=== PATIENT | male | born 1975 | race Caucasian/White ===

== ENCOUNTER 2018-08-20 12:57 | Emergency (ER) | payer OTHER, MEDICAID, SELFPAY ==
--- NOTE | 2018-08-20 13:05 | ED.URI ---
HPI - URI/Sore Throat <Marii Pickard PA-C - Last Filed: 08/20/18 21:48> General Chief Complaint: Upper Respiratory Symptoms Stated Complaint: CHEST COLD Time Seen by Provider: 08/20/18 13:01 Source: patient Mode of arrival: ambulatory Limitations: no limitations History of Present Illness HPI Narrative: This 43-year-old male comes to ED secondary to upper respiratory symptoms. He states that symptoms started almost 2 weeks ago with a ?dizzy? sensation like his ears were clogged or congested. He states that resolved, but then developed persistent cough, postnasal drip, and runny nose. He states that the cough has been fairly constant, wet with clear to frothy or corey sputum. He states that his throat feels somewhat scratchy and his left side of his neck feels somewhat sore and tender. He thinks these are due to coughing hard, does not feel like he has sore throat otherwise per se. He states that he does feel somewhat short of breath and has had some wheeze, worse when he wakes up in the morning and better in the afternoon. He thinks maybe his chest feels more congested than. He states he has also had some sweating at night and early in the morning, has not taken temperature is. He denies any chest pain, denies any new pain or swelling in his extremities. multiple community exposures but nothing specific. He did have a flu shot prior to onset of symptoms. He does have a history of reactive airways with bronchitis last year. Related Data Home Medications Medication Instructions Recorded Confirmed levothyroxine 175 mcg tablet 175 mcg PO DAILY 08/10/18 08/10/18 loratadine 10 mg capsule 10 mg PO DAILY 08/10/18 08/10/18 losartan 100 mg tablet 100 mg PO DAILY 08/10/18 08/10/18 metformin 1,000 mg tablet 1,000 mg PO BID 08/10/18 08/10/18 Previous Rx's Medication Instructions Recorded varenicline 0.5 mg (11)-1 mg (42) See Rx Instructions PO PER PKG DIR 08/10/18 tablets in a dose pack #53 each albuterol sulfate 2 inhalation INHALATION Q2-4H PRN 08/20/18 #8.5 gram codeine-guaifenesin 10 ml PO Q4-6H PRN #120 ml 08/20/18 Allergies Allergy/AdvReac Type Severity Reaction Status Date / Time rock Allergy Mild hives Verified 08/10/18 14:11 Review of Systems <Marii Pickard PA-C - Last Filed: 08/20/18 21:48> Review of Systems ROS Unobtainable: All systems reviewed & are unremarkable except as noted in HPI and below PFSH <Marii Pickard PA-C - Last Filed: 08/20/18 21:48> Medical History (Updated 08/20/18 @ 14:11 by Marii Pickard PA-C) Hypothyroidism (Chronic) Hypertension (Chronic) 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 HEAD: No sinus TTP. EYES: PERRL, EOMI. EARS: Normal auditory canals, TMS intact with normal light reflexes. ORAL CAVITY: Normal oropharynx. THROAT: PND noted NECK/THYROID: Neck supple, full range of motion, tender cervical lymphadenopathy. LUNGS: Clear to auscultation bilaterally, aside from coarse breath sounds, no cough on exam. HEART: RRR without murmur, nl S1, S2, no S3 or S4. Initial Vital Signs Initial Vital Signs: Vital Signs Temperature 97.8 F 08/20/18 13:06 Pulse Rate 95 H 08/20/18 13:06 Respiratory Rate 20 08/20/18 13:06 Blood Pressure 168/99 H 08/20/18 13:06 Pulse Oximetry 97 08/20/18 13:06 <Maite Alex MD - Last Filed: 08/30/18 07:38> Initial Vital Signs Initial Vital Signs: Vital Signs Temperature 97.8 F 08/20/18 13:06 Pulse Rate 95 H 08/20/18 13:06 Respiratory Rate 20 08/20/18 13:06 Blood Pressure 168/99 H 08/20/18 13:06 Pulse Oximetry 97 08/20/18 13:06 Course <Marii Pickard PA-C - Last Filed: 08/20/18 21:48> Orders Ordered: Discontinued Medications Albuterol (Ventolin) 2.5 mg INH NOW ONE Stop: 08/20/18 13:22 Last Admin: 08/20/18 13:35 Dose: 2.5 mg Vital Signs - 8 hr 08/20/18 14:13 Pulse Rate 93 H Respiratory Rate 16 Blood Pressure [Left Arm] 145/82 H Pulse Oximetry 97 <Maite Alex MD - Last Filed: 08/30/18 07:38> Orders Ordered: Discontinued Medications Albuterol (Ventolin) 2.5 mg INH NOW ONE Stop: 08/20/18 13:22 Last Admin: 08/20/18 13:35 Dose: 2.5 mg Vital Signs - 8 hr 08/20/18 14:13 Pulse Rate 93 H Respiratory Rate 16 Blood Pressure [Left Arm] 145/82 H Pulse Oximetry 97 MDM - URI/Sore Throat <Marii Pickard PA-C - Last Filed: 08/20/18 21:48> Imaging Data Chest x-ray: Radiologist's impression: [place] [address] XRay Report Signed Patient: Marquez Singleton [facility]#: [id number] : 1975Acct:[id number] Age/Sex: 43 / MDate of Service: 08/20/18 Loc: ED Accession Number: [id number] Procedure: XR chest 2V Ordering Provider: Marii Pickard P.A-C PROCEDURE: XR CHEST 2V INDICATIONS: cough, sweats, smoker TECHNIQUE: 2 views of the chest were acquired. COMPARISON: None. FINDINGS: Surgical changes and devices: None. Lungs and pleura: Lungs are clear. No pleural effusions or pneumothorax. Mild elevation of the right diaphragm is noted. Mediastinum: Mediastinal contours are normal. Heart size is normal. Bones and chest wall: No suspicious bony abnormalities. Soft tissues appear unremarkable. IMPRESSION: No acute cardiopulmonary process is suspected. Dictated by: Jose Martinez M.D. on 08/20/2018 at 12:38 Approved by: Jose Martinez M.D. on 08/20/2018 at 12:39 Discharge Plan Departure Patient Disposition: Home Clinical Impression: Bronchitis, Mild intermittent reactive airway disease Discharge Date/Time: 08/20/18 14:30 Interventions: ED Discharge Assessment Last Done: 08/20/18 14:29 Instructions: DI for Acute Bronchitis, DI for Reactive Airway Disease-Adult Activity Restrictions/Additional Instructions: I think that you have a head and chest cold (bronchitis) that is worsened by your reactive airways that you have had before. Please use your inhaler at least morning and evening, and you can use up to every couple of hours as needed in between for cough or tight chest. Use the spacer that we gave you. During the day, please try [id number] Mucinex to help with chest congestion, and also pick and shovel worker some Zyrtec (cetirizine, 10 mg) and try this instead of your Claritin once daily to help with the drainage. in the evening, you can use the codeine cough syrup as needed to help with cough and sleep, but remember this can make you sleepy and not to drive. Please follow-up with your PCP in a few days for recheck to make sure you are getting better as you may need further treatment if not improving. Prescriptions: New codeine-guaifenesin 10-100 mg/5 mL liquid 10 ml PO Q4-6H PRN (Reason: cough) Qty: 120 RF: 0 albuterol sulfate 90 mcg/actuation HFA aerosol inhaler 2 inhalation INHALATION Q2-4H PRN (Reason: cough, wheeze) Qty: 8.5 RF: 0 No Action levothyroxine [Synthroid] 175 mcg tablet 175 mcg PO DAILY RF: 0 metformin 1,000 mg tablet 1,000 mg PO BID RF: 0 losartan 100 mg tablet 100 mg PO DAILY RF: 0 loratadine 10 mg capsule 10 mg PO DAILY RF: 0 Chantix Starting Month Box 0.5 mg (11)- 1 mg (42) tablets,dose pack See Rx Instructions PO PER PKG DIR Qty: 53 RF: 0 Referrals: Veena Miles ARNP [Advanced Support Team Member] -
[2018-08-20 13:06] VITALS: BP 168/99; PULSE 95; RESP 20; TEMP 36.6; O2SAT 97
--- NOTE | 2018-08-20 13:21 | DI.RAD.S_ITS ---
PROCEDURE: XR CHEST 2V INDICATIONS: cough, sweats, smoker TECHNIQUE: 2 views of the chest were acquired. COMPARISON: None. FINDINGS: Surgical changes and devices: None. Lungs and pleura: Lungs are clear. No pleural effusions or pneumothorax. Mild elevation of the right diaphragm is noted. Mediastinum: Mediastinal contours are normal. Heart size is normal. Bones and chest wall: No suspicious bony abnormalities. Soft tissues appear unremarkable. IMPRESSION: No acute cardiopulmonary process is suspected. Dictated by: Jose Martinez M.D. on 08/20/2018 at 12:38 Approved by: Jose Martinez M.D. on 08/20/2018 at 12:39
[2018-08-20] MEDS: ALBUTEROL 2.5 MG/3 ML NEB (ADULT) INH (13:35)
[2018-08-20 13:47] VITALS: PULSE 88; RESP 16
[2018-08-20 14:13] VITALS: BP 145/82; PULSE 93; RESP 16; O2SAT 97
== END 2018-08-20 14:30 | disposition home or self-care (01) ==
PROVIDERS: Emergency Provider Internal Medicine
DX: J40 Bronchitis, not specified as acute or chronic (principal); J45.20 Mild intermittent asthma, uncomplicated
CPT/HCPCS: 71046; 94640; 99282; 99283; J7613

== ENCOUNTER → 2018-09-07 12:23 | Outpatient (CLI) | payer OTHER, MEDICAID, SELFPAY ==
[2018-09-07 13:20] LABS: Add Manual Diff / Slide Review NO; Basophils Absolute Auto 100 /uL (0-100); Basophils Percent Auto 0.9 % (0-2); Eosinophils Absolute Auto 200 /uL (0-450); Eosinophils Percent Auto 1.8 % (2-4); Hematocrit 47.6 % (41-53); Hemoglobin 16.7 g/dL (13.5-17.5); Lymphocytes Absolute Auto 2700 /uL (1100-4500); Lymphocytes Percent Auto 31.9 % (25-40); Mean Corpuscular Volume 88.6 fL (80-100); Monocytes Absolute Auto 500 /uL (0-900); Monocytes Percent Auto 6.1 % (3-14); Neutrophils Absolute Auto 5100 /uL (1500-7000); Neutrophils Percent Auto 59.3 % (50-75); Platelet Count 222 X10^3/uL (150-400); Red Blood Cell Count 5.37 X10^6/uL (4.5-5.9); Red Cell Distribution Width 13.6 % (11.6-14.8); White Blood Cell Count 8.6 X10^3/uL (4.5-11.0)
[2018-09-07 13:48] LABS: Alanine Aminotransferase 55 IU/L (21-72); Albumin 4.6 g/dL (3.5-5.0); Albumin Globulin Ratio 1.5 (1.0-2.8); Alkaline Phosphatase 85 U/L (38-126); Aspartate Aminotransferase 28 IU/L (17-59); BUN Creatinine Ratio 13.8 (6-22); Bilirubin Total 0.6 mg/dL (0.2-1.3); Blood Urea Nitrogen 11 mg/dL (9-20); Carbon Dioxide 26 mmol/L (22-32); Chloride 102 mmol/L (98-107); Cholesterol 177 mg/dL (140-199); Estimated Glomerular Filt Rate > 60.0 mL/min (>60); Glucose 215 mg/dL (70-100); HDL Cholesterol 38 mg/dL (40-60); HEMOLYSIS < 15 (0-50); LDL Cholesterol Calculated 113 mg/dL (<100); Potassium 4.1 mmol/L (3.4-5.1); Sodium 140 mmol/L (137-145); Total Protein 7.6 g/dL (6.3-8.2); Triglycerides 131 mg/dL (35-150)
[2018-09-07 14:34] LABS: Thyroid Stimulating Hormone 1.42 uIU/mL (0.47-4.68)
== END ==
PROVIDERS: Visit Provider Nurse Practitioner
DX: E03.9 Hypothyroidism, unspecified (principal); E11.9 Type 2 diabetes mellitus without complications; I10 Essential (primary) hypertension
CPT/HCPCS: 80053; 80061; 83036; 84443; 85025

== ENCOUNTER 2018-10-13 10:47 | Emergency (ER) | payer OTHER, MEDICAID, SELFPAY ==
[2018-10-13 10:54] VITALS: BP 171/112; PULSE 73; RESP 16; TEMP 36.8; O2SAT 100; BMI 31.2
[2018-10-13] MEDS: ONDANSETRON 4 MG/2 ML INJ IV (11:47)
[2018-10-13] MEDS: SODIUM CHLORIDE 0.9% 1,000 ML 1000 ML IV (11:47)
[2018-10-13 12:00] VITALS: BP 165/94; PULSE 79; RESP 16; O2SAT 97
--- NOTE | 2018-10-13 13:09 | ED_ITS ---
HPI - Nausea/Vomiting/Diarrhea General Chief complaint: Nausea/Vomiting/Diarrhea Stated complaint: Dizzy, Headache, Vomiting Time Seen by Provider: 10/13/18 11:20 Source: patient Mode of arrival: ambulatory Limitations: no limitations History of Present Illness HPI Narrative: Patient comes to emergency department complaining of nausea and vomiting on and off for the last week. He states that he has been under lot of stress over the last couple of weeks, as his mother during that time, and his boss has been giving a very hard time about being gone for that and now being ill. Patient states he had diarrhea initially but has not had any currently. He states that he has intermittently been able to eat and drink, and was able to hold down fluids this morning, but in between is vomiting everything . Patient is a diabetic, and states that his blood sugars, both fasting and otherwise, are usually in the 100's. Patient denies any fevers or chills. No dysuria. No blood in his vomit or diarrhea. No chest pain or abdominal pain. No other complaints at this time. No sick contacts. 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 Related Data Home Medications Medication Instructions Recorded Confirmed levothyroxine 175 mcg tablet 175 mcg PO DAILY 08/10/18 08/10/18 loratadine 10 mg capsule 10 mg PO DAILY 08/10/18 08/10/18 metformin 2,000 mg PO BEDTIME 10/13/18 10/13/18 Previous Rx's Medication Instructions Recorded varenicline 0.5 mg (11)-1 mg (42) See Rx Instructions PO PER PKG DIR 08/10/18 tablets in a dose pack #53 each albuterol sulfate 2 inhalation INHALATION Q2-4H PRN 08/20/18 #8.5 gram codeine-guaifenesin 10 ml PO Q4-6H PRN #120 ml 08/20/18 glyburide 5 mg tablet 5 mg PO DAILY #90 tab 09/10/18 losartan 100 mg tablet 100 mg PO DAILY #90 tab 09/10/18 losartan 25 mg tablet 25 mg PO DAILY #90 tab 09/14/18 ondansetron 4 mg PO Q6-8H PRN #10 tab 10/13/18 Allergies Allergy/AdvReac Type Severity Reaction Status Date / Time rock Allergy Mild hives Verified 10/13/18 10:54 Review of Systems Constitutional Denies chills, Denies fever(s), Denies lethargy and Denies weakness Eyes Denies change in vision, Denies eye discharge, Denies irritation and Denies loss of vision ENT Ears, Nose, Mouth, and Throat: Denies change in voice, Denies neck pain and Denies sore throat Cardiovascular Denies chest pain, Denies irregular heart rhythm, Denies lightheadedness, Denies palpitations, Denies dyspnea, Denies dyspnea on exertion and Denies orthopnea Respiratory Denies cough, Denies dyspnea, Denies dyspnea on exertion and Denies wheezing Gastrointestinal Gastrointestinal: Denies abdominal pain, Denies change in bowel habits, Denies diarrhea, Reports nausea and Reports vomiting Genitourinary Denies hematuria, Denies flank pain, Denies urinary incontinence and Denies urinary urgency Musculoskeletal Denies neck pain Integumentary/Breasts Denies pruritus, Denies erythema, Denies rash and Denies wounds Neurologic Denies confusion, Denies loss of vision and Denies weakness Psychiatric Denies anxiety, Denies confusion, Denies depression, Denies homicidal ideation and Denies suicidal ideation Endocrine Denies palpitations Hematologic/Lymphatic Denies easy bruising Allergic/Immunologic Denies wheezing [facility] Medical History Hypothyroidism (Chronic ~2010) Hypertension (Chronic ~2006) Non-insulin dependent type 2 diabetes mellitus (Chronic ~2013) Dermatitis (Chronic ~2011) Headache (Chronic ~1984) Hearing loss (Chronic) SHIRLEY (obstructive sleep apnea) (Chronic ~2006) Seasonal allergies (Chronic) Wrist pain (Chronic ~2011) Surgical History Status post hernia repair (Resolved) Social History Smoking Status: Current every day smoker Social History Smoking Status: Current every day smoker Exam Initial Vital Signs Initial Vital Signs: Vital Signs Temperature 98.3 F 10/13/18 10:54 Pulse Rate 73 10/13/18 10:54 Respiratory Rate 16 10/13/18 10:54 Blood Pressure 171/112 H 10/13/18 10:54 Pulse Oximetry 100 10/13/18 10:54 Const General: cooperative and well developed Nutritional Appearance: well nourished Orientation: alert, awake, oriented x3 and not confused [facility] Head: normocephalic and atraumatic Ears: external ears normal and TM's normal bilaterally Nose: external nose normal and No nasal discharge Face and sinus: sinuses nontender, face symmetric, no sinus tenderness and No dry mucous membranes Mouth: oral mucosae normal and moist mucous membranes Teeth and gingiva: dentition normal Throat: tonsils normal and uvula midline Eyes General: appearance normal, both eyes and all related structures Eyelids: eyelids normal Conjunctivae: conjunctivae normal Sclera: sclerae normal Pupils: PERRL EOM: EOM intact bilaterally Neck Neck: normal visual inspection, trachea midline, No lymphadenopathy, No midline deformity and No JVD Lymphatic: No lymphedema Chest Chest: normal inspection of the chest Resp Effort & Inspection: normal respiratory effort, able to speak in complete sentences, no respiratory distress and no use of accessory muscles Auscultation: clear to auscultation bilaterally, no rales, no rhonchi and no wheezes Cardio Rate: regular rate Rhythm: regular rhythm Heart Sounds: no click, no gallops, no murmurs and no rubs Pulses: normal peripheral pulses GI Inspection: non-distended Palpation: soft, no hepatosplenomegaly, No guarding, No pulsatile mass and No tender Auscultation: normal bowel sounds Back/Spine/Pelvis Back: No CVA tenderness Cervical Spine: cervical ROM normal and No pain with cervical ROM Thoracic/Lumbar Spine: thoracic and lumbar spine normal to inspection Skin General: no rashes or lesions noted, No jaundice and No petechiae Neuro General: alert, oriented x3, gait normal and no focal motor deficits Speech: speech normal Extrem General: full ROM, no clubbing, cyanosis or edema, no pedal edema and no calf tenderness Psych Appearance: well kempt Mental Status: mental status grossly normal Attitude: cooperative Thought Content: normal and suicidality Judgment: judgment good Course Course Narrative: Patient was worked up with laboratory studies, and treated with IV fluids and Zofran. He appeared well overall, and I did not suspect a serious cause of illness. Patient was found be feeling better after treatment, though he was still little bit nauseated. His labs were unremarkable. Patient was deemed stable for discharge home. We have discussed home management of the symptoms, as well as the usual indications for return. Orders Ordered: Discontinued Medications Diphenhydramine HCl (Benadryl) 25 mg IV NOW ONE Stop: 10/13/18 14:19 Last Admin: 10/13/18 14:22 Dose: 25 mg Sodium Chloride (Normal Saline 0.9%) 1,000 mls @ 1,000 mls/hr IV BOLUS ONE Stop: 10/13/18 12:45 Last Infusion: 10/13/18 13:13 Dose: 0 mls/hr Admin: 10/13/18 11:47 Dose: 1,000 mls/hr Ondansetron HCl (Zofran) 4 mg IV NOW ONE Stop: 10/13/18 11:46 Last Admin: 10/13/18 11:47 Dose: 4 mg Prochlorperazine (Compazine) 10 mg IV NOW ONE Stop: 10/13/18 14:19 Last Admin: 10/13/18 14:22 Dose: 10 mg Vital Signs - 8 hr 10/13/18 10:54 10/13/18 12:00 Temperature 98.3 F Pulse Rate 73 79 Respiratory Rate 16 16 Blood Pressure 171/112 H Blood Pressure [Left Arm] 165/94 H Pulse Oximetry 100 97 MDM - Nausea/Vomiting/Diarrhea Medical Records Attestation: I reviewed the patient's medical records. Lab Data Attestation: I reviewed the patient's lab results. Result diagrams: 10/13/18 11:05 10/13/18 11:05 Lab Results 10/13/18 10/13/18 Range/Units 11:05 11:05 WBC 12.1 H (4.5-11.0) X10^3/uL RBC 5.44 (4.5-5.9) X10^6/uL Hgb 16.9 (13.5-17.5) g/dL Hct 47.3 (41-53) % MCV 86.9 (80-100) fL MCH 31.0 (26-34) PG MCHC 35.7 (30-36) % RDW 13.2 (11.6-14.8) % Plt Count 226 (150-400) X10^3/uL Neut % (Auto) 74.7 (50-75) % Lymph % (Auto) 18.8 L (25-40) % [place] % (Auto) 5.3 (3-14) % Eos % (Auto) 0.8 L (2-4) % Baso % (Auto) 0.4 (0-2) % Neut # (Auto) 9000 H (4492-6051) /uL Lymph # (Auto) 2300 (7198-1034) /uL [place] # (Auto) 600 (0-900) /uL Eos # (Auto) 100 (0-450) /uL Baso # (Auto) 100 (0-100) /uL Sodium 141 (137-145) mmol/L Potassium 3.6 (3.4-5.1) mmol/L Chloride 99 (98-107) mmol/L Carbon Dioxide 32 (22-32) mmol/L BUN 13 (9-20) mg/dL Creatinine 0.80 (0.66-1.25) mg/dL Estimated GFR > 60.0 (>60) mL/min BUN/Creatinine Ratio 16.3 (6-22) Glucose 210 H (70-100) mg/dL Calcium 9.5 (8.4-10.2) mg/dL Total Bilirubin 0.9 (0.2-1.3) mg/dL AST 64 H (17-59) IU/L ALT 62 (21-72) IU/L Alkaline Phosphatase 72 (38-126) U/L Total Protein 7.8 (6.3-8.2) g/dL Albumin 4.7 (3.5-5.0) g/dL Globulin 3.1 (1.7-4.1) g/dL Albumin/Globulin Ratio 1.5 (1.0-2.8) Discharge Plan Departure Patient Disposition: Home Clinical Impression: Gastroenteritis Discharge Date/Time: 10/13/18 14:50 Interventions: ED Discharge Assessment Last Done: 10/13/18 14:50 Instructions: DI for Vomiting -- Adult Activity Restrictions/Additional Instructions: Your labs look good overall. Please take the nausea medicine, as needed, at home for your symptoms. If you need to stay home from work, you may use the work note provided. Your prescription has been sent to [facility] in [place]. Prescriptions: New ondansetron 4 mg tablet,disintegrating 4 mg PO Q6-8H PRN (Reason: nausea and vomiting) Qty: 10 RF: 0 No Action glyburide 5 mg tablet 5 mg PO DAILY Qty: 90 RF: 3 losartan 100 mg tablet 100 mg PO DAILY Qty: 90 RF: 3 levothyroxine [Synthroid] 175 mcg tablet 175 mcg PO DAILY RF: 0 loratadine 10 mg capsule 10 mg PO DAILY RF: 0 Chantix Starting Month Box 0.5 mg (11)- 1 mg (42) tablets,dose pack See Rx Instructions PO PER PKG DIR Qty: 53 RF: 0 losartan 25 mg tablet 25 mg PO DAILY Qty: 90 RF: 3 metformin 500 mg tablet extended release 24 hr 2,000 mg PO BEDTIME RF: 0 codeine-guaifenesin 10-100 mg/5 mL liquid 10 ml PO Q4-6H PRN (Reason: cough) Qty: 120 RF: 0 albuterol sulfate 90 mcg/actuation HFA aerosol inhaler 2 inhalation INHALATION Q2-4H PRN (Reason: cough, wheeze) Qty: 8.5 RF: 0 Referrals: Veena Miles ARNP [Primary Care Provider] - Stand Alone Forms: Work Release Note
[2018-10-13 13:12] LABS: Add Manual Diff / Slide Review NO; Basophils Absolute Auto 100 /uL (0-100); Basophils Percent Auto 0.4 % (0-2); Eosinophils Absolute Auto 100 /uL (0-450); Eosinophils Percent Auto 0.8 % (2-4); Hematocrit 47.3 % (41-53); Hemoglobin 16.9 g/dL (13.5-17.5); Lymphocytes Absolute Auto 2300 /uL (1100-4500); Lymphocytes Percent Auto 18.8 % (25-40); Mean Corpuscular HGB Conc 35.7 % (30-36); Mean Corpuscular Volume 86.9 fL (80-100); Monocytes Absolute Auto 600 /uL (0-900); Monocytes Percent Auto 5.3 % (3-14); Neutrophils Absolute Auto 9000 /uL (1500-7000); Neutrophils Percent Auto 74.7 % (50-75); Platelet Count 226 X10^3/uL (150-400); Red Blood Cell Count 5.44 X10^6/uL (4.5-5.9); Red Cell Distribution Width 13.2 % (11.6-14.8); White Blood Cell Count 12.1 X10^3/uL (4.5-11.0)
[2018-10-13 13:21] LABS: Alanine Aminotransferase 62 IU/L (21-72); Albumin 4.7 g/dL (3.5-5.0); Albumin Globulin Ratio 1.5 (1.0-2.8); Alkaline Phosphatase 72 U/L (38-126); Aspartate Aminotransferase 64 IU/L (17-59); BUN Creatinine Ratio 16.3 (6-22); Bilirubin Total 0.9 mg/dL (0.2-1.3); Blood Urea Nitrogen 13 mg/dL (9-20); Calcium 9.5 mg/dL (8.4-10.2); Carbon Dioxide 32 mmol/L (22-32); Chloride 99 mmol/L (98-107); Estimated Glomerular Filt Rate > 60.0 mL/min (>60); Globulin 3.1 g/dL (1.7-4.1); Glucose 210 mg/dL (70-100); HEMOLYSIS 17 (0-50); Potassium 3.6 mmol/L (3.4-5.1); Sodium 141 mmol/L (137-145); Total Protein 7.8 g/dL (6.3-8.2)
[2018-10-13 14:00] VITALS: BP 157/72; PULSE 74; O2SAT 100
[2018-10-13 14:22] VITALS: BP 152/90; PULSE 82
[2018-10-13] MEDS: PROCHLORPERAZINE 10 MG/2 ML VIAL IV (14:22)
[2018-10-13] MEDS: diphenhydrAMINE 50 MG/ML VIAL 25 MG IV (14:22)
[2018-10-13 14:44] VITALS: BP 165/103; PULSE 78; RESP 18; O2SAT 100
== END 2018-10-13 14:50 | disposition home or self-care (01) ==
PROVIDERS: Emergency Provider Emergency Medicine; PCP Nurse Practitioner
DX: K52.9 Noninfective gastroenteritis and colitis, unspecified (principal)
CPT/HCPCS: 36591; 80053; 85025; 96361; 96374; 96375; 99283; 99284; J0780; J1200; J2405

== ENCOUNTER 2018-11-25 09:09 | Emergency (ER) | payer OTHER, MEDICAID, SELFPAY ==
[2018-11-25 09:15] VITALS: BP 150/95; PULSE 111; RESP 18; TEMP 36.9; O2SAT 100; BMI 31.7
--- NOTE | 2018-11-25 09:22 | ED.HA ---
HPI - Headache General Chief Complaint: Headache Stated Complaint: Headache Time Seen by Provider: 11/25/18 09:12 Source: patient and family () Mode of arrival: ambulatory Limitations: no limitations History of Present Illness HPI Narrative: 43-year-old male comes to the emergency department with complaint of headache. Patient states he gets headaches fairly regularly. Normally they are kind of from the front towards the back this time it is more on the right side radiating towards the back. Patient denies any vision changes, no speech changes, no numbness, no weakness. No difficulty with movement. Patient states that he has had issues with his blood pressure in the been trying to control it, they just adjusted his medication on Friday. He was told to come to the ER if he developed a headache which he did so he came in today. He has been slightly nauseated but denies any vomiting. No chest pain, no shortness of breath, no black or bloody stools. He was having some constipation but that has resolved. He has not been having any urinary symptoms. He is on 3 medications for blood pressure, thyroid medication, 2 medications including metformin and glyburide for diabetes. He also has sleep apnea but his CPAP was in his car which was repossessed and he has not been able to require it from the company that repossessed his car. Patient is scheduled to get ultrasound of his kidneys to check for stenosis. Family is sit history is significant for hypertension in his mother, his sister also has diabetes. No strokes, no heart attack. Related Data Home Medications Medication Instructions Recorded Confirmed levothyroxine 175 mcg tablet 175 mcg PO DAILY 08/10/18 11/25/18 loratadine 10 mg capsule 10 mg PO DAILY 08/10/18 11/25/18 metformin 2,000 mg PO BEDTIME 10/13/18 11/25/18 Previous Rx's Medication Instructions Recorded varenicline 0.5 mg (11)-1 mg (42) See Rx Instructions PO PER PKG DIR 08/10/18 tablets in a dose pack #53 each glyburide 5 mg tablet 5 mg PO DAILY #90 tab 09/10/18 ondansetron 4 mg PO Q6-8H PRN #10 tab 10/13/18 azelastine 0.05 % eye drops 1 drop OPHTHALMIC (EYE) BID PRN #6 11/09/18 ml losartan 100 mg tablet 100 mg PO DAILY #90 tab 11/09/18 losartan 25 mg tablet 25 mg PO DAILY #90 tab 11/09/18 sumatriptan 25 mg tablet See Rx Instructions PO .COMPLEX 11/09/18 #30 tab spironolactone 50 1 tab PO DAILY #90 tab 11/16/18 mg-hydrochlorothiazide 50 mg tablet amlodipine 5 mg tablet 5 mg PO DAILY #30 tab 11/23/18 Allergies Allergy/AdvReac Type Severity Reaction Status Date / Time rock Allergy Mild hives Verified 11/25/18 09:21 Review of Systems Review of Systems ROS Unobtainable: All systems reviewed & are unremarkable except as noted in HPI and below Constitutional Denies chills, Reports fatigue, Denies fever(s), Reports headache(s) and Denies weakness Eyes Denies change in vision ENT Ears, Nose, Mouth, and Throat: Reports headache(s), Denies neck pain and Denies disequilibrium Cardiovascular Denies chest pain, Denies syncope, Denies edema, Denies irregular heart rhythm, Denies lightheadedness, Denies palpitations, Denies dyspnea and Denies orthopnea Respiratory Denies chest congestion, Denies cough and Denies dyspnea Gastrointestinal Gastrointestinal: Denies abdominal pain, Denies melena, Denies hematochezia, Denies change in bowel habits, Denies constipation, Denies diarrhea, Reports nausea and Denies vomiting Genitourinary Denies hematuria, Denies dysuria, Denies flank pain, Denies urinary frequency and Denies urinary urgency Musculoskeletal Denies neck pain Integumentary/Breasts Denies rash Neurologic Reports as per HPI, Denies confusion, Denies syncope, Reports headache(s), Denies focal weakness, Denies sensory deficit, Denies disequilibrium and Denies weakness Psychiatric Denies confusion Endocrine Reports fatigue, Denies polyphagia, Denies polydipsia, Denies polyuria and Denies palpitations [facility] Medical History Hypothyroidism (Chronic ~2010) Hypertension (Chronic ~2006) Non-insulin dependent type 2 diabetes mellitus (Chronic ~2013) Dermatitis (Chronic ~2011) Headache (Chronic ~1984) Hearing loss (Chronic) SHIRLEY (obstructive sleep apnea) (Chronic ~2006) Seasonal allergies (Chronic) Wrist pain (Chronic ~2011) Surgical History Status post hernia repair (Resolved) Social History Smoking Status: Current every day smoker Social History (Updated 11/25/18 @ 09:35 by Marlen Real DO) marital status: Smoking Status: Current every day smoker alcohol intake: current substance use type: marijuana Exam Narrative Exam Narrative: GEN: well nourished, well appearing male, alert and oriented x 3, patient appears to be in no acute distress. HEENT: Atraumatic, pupils are equal round reactive to light, extraocular movements are intact, nares are clear, no facial droop, no dysarthria. HEART: Regular rate and rhythm without murmur, clicks, rubs. Pulses are equal in upper and lower extremities LUNGS:Lungs clear to auscultation, no wheezes, rales, crackles, chest moves symmetrically, no tachypnea so accessory muscle use. ABD:bowel sounds normal, soft, non-tender, no guarding, rebound, rigidity, no masses noted, no hepatosplenomegaly :No CVA tenderness MSCL: Non-tender, no muscle atrophy, muscles strength 5/5 upper and lower extremities, full range of motion, normal gait NEURO:CN 2-12 intact, sensation normal Initial Vital Signs Initial Vital Signs: Vital Signs Temperature 98.4 F 11/25/18 09:15 Pulse Rate 111 H 11/25/18 09:15 Respiratory Rate 18 11/25/18 09:15 Blood Pressure 150/95 H 11/25/18 09:15 Pulse Oximetry 100 11/25/18 09:15 Scores GCS Comer coma scale eye opening: Spontaneous Gerald coma scale verbal response: Orientated Gerald coma scale motor response: Obey commands Comer coma scale total score: 15 Course Orders Ordered: ED Orders 11/25/18 09:46 CT head/brain wo con Stat Discontinued Medications Diphenhydramine HCl (Benadryl) 25 mg IV NOW ONE Stop: 11/25/18 10:23 Last Admin: 11/25/18 10:31 Dose: 25 mg Sodium Chloride (Normal Saline 0.9%) 1,000 mls @ 1,000 mls/hr IV BOLUS ONE Stop: 11/25/18 10:21 Last Infusion: 11/25/18 11:00 Dose: 0 mls/hr Admin: 11/25/18 09:42 Dose: 1,000 mls/hr Metoclopramide HCl (Reglan) 10 mg IV NOW ONE Stop: 11/25/18 09:23 Last Admin: 11/25/18 09:43 Dose: 10 mg Vital Signs - 8 hr 11/25/18 11:00 11/25/18 11:44 Pulse Rate 100 H 95 H Respiratory Rate 21 17 Blood Pressure 148/84 H Blood Pressure [Left Arm] 134/72 Pulse Oximetry 96 98 MDM - Headache Lab Data Attestation: I reviewed the patient's lab results. Result diagrams: 11/25/18 09:32 11/25/18 09:32 Lab Results 11/25/18 11/25/18 Range/Units 09:32 09:32 WBC 10.7 (4.5-11.0) X10^3/uL RBC 5.70 (4.5-5.9) X10^6/uL Hgb 17.8 H (13.5-17.5) g/dL Hct 50.4 (41-53) % MCV 88.4 (80-100) fL MCH 31.2 (26-34) PG MCHC 35.3 (30-36) % RDW 13.2 (11.6-14.8) % Plt Count 256 (150-400) X10^3/uL Neut % (Auto) 64.8 (50-75) % Lymph % (Auto) 25.2 (25-40) % Knox % (Auto) 5.1 (3-14) % Eos % (Auto) 3.9 (2-4) % Baso % (Auto) 1.0 (0-2) % Neut # (Auto) 6900 (5745-2234) /uL Lymph # (Auto) 2700 (5793-0080) /uL Knox # (Auto) 500 (0-900) /uL Eos # (Auto) 400 (0-450) /uL Baso # (Auto) 100 (0-100) /uL Sodium 139 (137-145) mmol/L Potassium 3.9 (3.4-5.1) mmol/L Chloride 100 (98-107) mmol/L Carbon Dioxide 25 (22-32) mmol/L BUN 14 (9-20) mg/dL Creatinine 0.90 (0.66-1.25) mg/dL Estimated GFR > 60.0 (>60) mL/min BUN/Creatinine Ratio 15.6 (6-22) Glucose 351 H (70-100) mg/dL Calcium 9.4 (8.4-10.2) mg/dL Total Bilirubin 1.0 (0.2-1.3) mg/dL AST 41 (17-59) IU/L ALT 76 H (21-72) IU/L Alkaline Phosphatase 83 (38-126) U/L Total Creatine Kinase 55 (55-170) U/L CK-MB (CK-2) TNP CK-MB (CK-2) Rel Index TNP Troponin I < 0.012 (0.01-0.034) ng/mL Total Protein 7.6 (6.3-8.2) g/dL Albumin 4.6 (3.5-5.0) g/dL Globulin 3.0 (1.7-4.1) g/dL Albumin/Globulin Ratio 1.5 (1.0-2.8) Point of Care Testing Glucose POC 284 Urine Dip Bedside Urine Glucose 1000 mg/dl Bedside Urine Bilirubin - Negative Bedside Urine Ketone +/- 5 Urine Specific Wharton 1.015 Bedside Urine Occult Blood - Negative Bedside Urine pH 6 Bedside Urine Protein - Negative Bedside Urine Urobilinogen +/- 1mg Bedside Urine Nitrite - Negative Bedside Urine Leukocytes - Negative Esterase Imaging Data CT scan - head: Radiologist's impression: [address] [id number] [address] Scan Report Signed Patient: Marquez Singleton [facility]#: [id number] : 1975Acct:[id number] Age/Sex: 43 / MDate of Service: 11/25/18 Loc: ED Accession Number: [id number] Procedure: CT head/brain wo con Ordering Provider: Marlen Real D.O. PROCEDURE: CT HEAD/BRAIN WO CON INDICATIONS: headaches, hypertension TECHNIQUE: Noncontrast 4.5 mm thick angled axial sections acquired from the foramen magnum to the vertex, with coronal and sagittal reformats. For radiation dose reduction, the following was used: automated exposure control, adjustment of mA and/or kV according to patient size. COMPARISON: None. FINDINGS: Image quality: Excellent. CSF spaces: Basal cisterns are patent. No extra-axial fluid collections. Ventricles are normal in size and shape. Brain: No midline shift. No intracranial masses or hemorrhage. Estevez-white matter interface is normal. Skull and face: Calvarium and visualized facial bones are intact, without suspicious lesions. Sinuses: Visualized sinuses and mastoids are clear. IMPRESSION: Normal intracranial study, without hemorrhage. Dictated by: Jonah Coleman M.D. on 11/25/2018 at 8:59 Approved by: Jonah Coleman M.D. on 11/25/2018 at 9:00 Chest x-ray: Radiologist's impression: [address] [address] XRay Report Signed Patient: Marquez Singleton [facility]#: [id number] : 1975Acct:[id number] Age/Sex: 43 / MDate of Service: 11/25/18 Loc: ED Accession Number: [id number] Procedure: XR chest 1V Ordering Provider: Marlen Real D.O. PROCEDURE: XR CHEST 1V INDICATIONS: hypertension TECHNIQUE: One view of the chest was acquired. COMPARISON: [facility], , XR CHEST 2V, 08/20/2018, 13:21. FINDINGS: Surgical changes and devices: None. Lungs and pleura: Lungs are clear. No pleural effusions or pneumothorax. Mediastinum: Mediastinal contours appear normal. Heart size is normal. Bones and chest wall: No suspicious bony lesions. Overlying soft tissues appear unremarkable. IMPRESSION: No acute process. Dictated by: Deni Pink M.D. on 11/25/2018 at 9:45 Approved by: Deni Pink M.D. on 11/25/2018 at 9:46 ECG Data Attestation: I personally reviewed and interpreted this ECG as follows: Prior ECG tracings: not available for review Interpretation: Sinus rhythm with incomplete right bundle branch, left and future fascicular block. Stated 98 P are 127 QRS of 109 and QTC of 402. Q-wave in [address] elevation. No prior for review. MDM Narrative Medical decision making narrative: Patient has had chronic headaches for a prolonged period of time. Likely this is secondary to his typical headache pattern. Head CT and chest x-ray are negative, he is hyperglycemic but no other acute changes noted on his lab work. He described a blood pressure of 204 at home but was 150 upon arrival 95 which appears improved from his last doctor's visit of 166/114. Discussed with patient plan to continue with follow-up with his primary care as well as further evaluation for his hypertension. I would not adjust his medications at this time. He received fluids as well as some Reglan and this was probably helpful for his headache but made him feel antsy. Patient was given Benadryl 25 mg. Urine shows, glucose and ketones. he does not have an anion gap of blood work. Bicarb is appropriate. No DKA> He is a little hyperglycemic numbers are slightly improved with a L of fluids. Discharge Plan Departure Patient Disposition: Home Clinical Impression: Headache, Hypertension, Hyperglycemia Discharge Date/Time: 11/25/18 11:48 Interventions: ED Discharge Assessment Last Done: 11/25/18 11:44 Activity Restrictions/Additional Instructions: Follow-up with your primary care physician for blood pressure recheck. I also agree with that your plan have renal ultrasound for evaluation because of your hypertension. I would also discussed with your physician about getting your CPAP replaced, this can also affect your blood pressure. Continue home medications as prescribed. Return to the emergency department for fevers could 100.4 F, sudden severe headaches, passing out, new vision changes, new weakness, numbness, difficulty with speech, chest pain, shortness of breath, persistent vomiting, black or bloody stools or other new or concerning symptoms. Prescriptions: No Action glyburide 5 mg tablet 5 mg PO DAILY Qty: 90 RF: 3 levothyroxine [Synthroid] 175 mcg tablet 175 mcg PO DAILY RF: 0 loratadine 10 mg capsule 10 mg PO DAILY RF: 0 Chantix Starting Month Box 0.5 mg (11)- 1 mg (42) tablets,dose pack See Rx Instructions PO PER PKG DIR Qty: 53 RF: 0 azelastine 0.05 % drops 1 drop ophthalmic (eye) BID PRN (Reason: Seasonal allergies) Qty: 6 RF: 5 losartan 100 mg tablet 100 mg PO DAILY Qty: 90 RF: 3 losartan 25 mg tablet 25 mg PO DAILY Qty: 90 RF: 3 sumatriptan succinate [Imitrex] 25 mg tablet See Rx Instructions PO .COMPLEX Qty: 30 RF: 3 spironolacton-hydrochlorothiaz 50-50 mg tablet 1 tab PO DAILY Qty: 90 RF: 3 amlodipine 5 mg tablet 5 mg PO DAILY Qty: 30 RF: 2 metformin 500 mg tablet extended release 24 hr 2,000 mg PO BEDTIME RF: 0 ondansetron 4 mg tablet,disintegrating 4 mg PO Q6-8H PRN (Reason: nausea and vomiting) Qty: 10 RF: 0 Referrals: Veena Miles ARNP [Primary Care Provider] -
--- NOTE | 2018-11-25 09:30 | ED_ITS ---
HPI - Headache General Chief Complaint: Headache Stated Complaint: Headache Time Seen by Provider: 11/25/18 09:12 Source: patient and family () Mode of arrival: ambulatory Limitations: no limitations History of Present Illness HPI Narrative: 43-year-old male comes to the emergency department with complaint of headache. Patient states he gets headaches fairly regularly. Normally they are kind of from the front towards the back this time it is more on the right side radiating towards the back. Patient denies any vision changes, no speech changes, no numbness, no weakness. No difficulty with movement. Patient states that he has had issues with his blood pressure in the been trying to control it, they just adjusted his medication on Friday. He was told to come to the ER if he developed a headache which he did so he came in today. He has been slightly nauseated but denies any vomiting. No chest pain, no shortness of breath, no black or bloody stools. He was having some constipation but that has resolved. He has not been having any urinary symptoms. He is on 3 medications for blood pressure, thyroid medication, 2 medications including metformin and glyburide for diabetes. He also has sleep apnea but his CPAP was in his car which was repossessed and he has not been able to require it from the company that repossessed his car. Patient is scheduled to get ultrasound of his kidneys to check for stenosis. Family is sit history is significant for hypertension in his mother, his sister also has diabetes. No strokes, no heart attack. Related Data Home Medications Medication Instructions Recorded Confirmed levothyroxine 175 mcg tablet 175 mcg PO DAILY 08/10/18 11/25/18 loratadine 10 mg capsule 10 mg PO DAILY 08/10/18 11/25/18 metformin 2,000 mg PO BEDTIME 10/13/18 11/25/18 Previous Rx's Medication Instructions Recorded varenicline 0.5 mg (11)-1 mg (42) See Rx Instructions PO PER PKG DIR 08/10/18 tablets in a dose pack #53 each glyburide 5 mg tablet 5 mg PO DAILY #90 tab 09/10/18 ondansetron 4 mg PO Q6-8H PRN #10 tab 10/13/18 azelastine 0.05 % eye drops 1 drop OPHTHALMIC (EYE) BID PRN #6 11/09/18 ml losartan 100 mg tablet 100 mg PO DAILY #90 tab 11/09/18 losartan 25 mg tablet 25 mg PO DAILY #90 tab 11/09/18 sumatriptan 25 mg tablet See Rx Instructions PO .COMPLEX 11/09/18 #30 tab spironolactone 50 1 tab PO DAILY #90 tab 11/16/18 mg-hydrochlorothiazide 50 mg tablet amlodipine 5 mg tablet 5 mg PO DAILY #30 tab 11/23/18 Allergies Allergy/AdvReac Type Severity Reaction Status Date / Time rock Allergy Mild hives Verified 11/25/18 09:21 Review of Systems Review of Systems ROS Unobtainable: All systems reviewed & are unremarkable except as noted in HPI and below Constitutional Denies chills, Reports fatigue, Denies fever(s), Reports headache(s) and Denies weakness Eyes Denies change in vision ENT Ears, Nose, Mouth, and Throat: Reports headache(s), Denies neck pain and Denies disequilibrium Cardiovascular Denies chest pain, Denies syncope, Denies edema, Denies irregular heart rhythm, Denies lightheadedness, Denies palpitations, Denies dyspnea and Denies orthopnea Respiratory Denies chest congestion, Denies cough and Denies dyspnea Gastrointestinal Gastrointestinal: Denies abdominal pain, Denies melena, Denies hematochezia, Denies change in bowel habits, Denies constipation, Denies diarrhea, Reports nausea and Denies vomiting Genitourinary Denies hematuria, Denies dysuria, Denies flank pain, Denies urinary frequency and Denies urinary urgency Musculoskeletal Denies neck pain Integumentary/Breasts Denies rash Neurologic Reports as per HPI, Denies confusion, Denies syncope, Reports headache(s), Denies focal weakness, Denies sensory deficit, Denies disequilibrium and Denies weakness Psychiatric Denies confusion Endocrine Reports fatigue, Denies polyphagia, Denies polydipsia, Denies polyuria and Denies palpitations [facility] Medical History Hypothyroidism (Chronic ~2010) Hypertension (Chronic ~2006) Non-insulin dependent type 2 diabetes mellitus (Chronic ~2013) Dermatitis (Chronic ~2011) Headache (Chronic ~1984) Hearing loss (Chronic) SHIRLEY (obstructive sleep apnea) (Chronic ~2006) Seasonal allergies (Chronic) Wrist pain (Chronic ~2011) Surgical History Status post hernia repair (Resolved) Social History Smoking Status: Current every day smoker Social History (Updated 11/25/18 @ 09:35 by Marlen Real DO) marital status: Smoking Status: Current every day smoker alcohol intake: current substance use type: marijuana Exam Narrative Exam Narrative: GEN: well nourished, well appearing male, alert and oriented x 3, patient appears to be in no acute distress. HEENT: Atraumatic, pupils are equal round reactive to light, extraocular movements are intact, nares are clear, no facial droop, no dysarthria. HEART: Regular rate and rhythm without murmur, clicks, rubs. Pulses are equal in upper and lower extremities LUNGS:Lungs clear to auscultation, no wheezes, rales, crackles, chest moves symmetrically, no tachypnea so accessory muscle use. ABD:bowel sounds normal, soft, non-tender, no guarding, rebound, rigidity, no masses noted, no hepatosplenomegaly :No CVA tenderness MSCL: Non-tender, no muscle atrophy, muscles strength 5/5 upper and lower extremities, full range of motion, normal gait NEURO:CN 2-12 intact, sensation normal Initial Vital Signs Initial Vital Signs: Vital Signs Temperature 98.4 F 11/25/18 09:15 Pulse Rate 111 H 11/25/18 09:15 Respiratory Rate 18 11/25/18 09:15 Blood Pressure 150/95 H 11/25/18 09:15 Pulse Oximetry 100 11/25/18 09:15 Scores GCS [place] coma scale eye opening: Spontaneous Gerald coma scale verbal response: Orientated Gerald coma scale motor response: Obey commands [place] coma scale total score: 15 Course Orders Ordered: ED Orders 11/25/18 09:46 CT head/brain wo con Stat Discontinued Medications Diphenhydramine HCl (Benadryl) 25 mg IV NOW ONE Stop: 11/25/18 10:23 Last Admin: 11/25/18 10:31 Dose: 25 mg Sodium Chloride (Normal Saline 0.9%) 1,000 mls @ 1,000 mls/hr IV BOLUS ONE Stop: 11/25/18 10:21 Last Infusion: 11/25/18 11:00 Dose: 0 mls/hr Admin: 11/25/18 09:42 Dose: 1,000 mls/hr Metoclopramide HCl (Reglan) 10 mg IV NOW ONE Stop: 11/25/18 09:23 Last Admin: 11/25/18 09:43 Dose: 10 mg Vital Signs - 8 hr 11/25/18 11:00 11/25/18 11:44 Pulse Rate 100 H 95 H Respiratory Rate 21 17 Blood Pressure 148/84 H Blood Pressure [Left Arm] 134/72 Pulse Oximetry 96 98 MDM - Headache Lab Data Attestation: I reviewed the patient's lab results. Result diagrams: 11/25/18 09:32 11/25/18 09:32 Lab Results 11/25/18 11/25/18 Range/Units 09:32 09:32 WBC 10.7 (4.5-11.0) X10^3/uL RBC 5.70 (4.5-5.9) X10^6/uL Hgb 17.8 H (13.5-17.5) g/dL Hct 50.4 (41-53) % MCV 88.4 (80-100) fL MCH 31.2 (26-34) PG MCHC 35.3 (30-36) % RDW 13.2 (11.6-14.8) % Plt Count 256 (150-400) X10^3/uL Neut % (Auto) 64.8 (50-75) % Lymph % (Auto) 25.2 (25-40) % Dougherty % (Auto) 5.1 (3-14) % Eos % (Auto) 3.9 (2-4) % Baso % (Auto) 1.0 (0-2) % Neut # (Auto) 6900 (6557-5551) /uL Lymph # (Auto) 2700 (9491-0117) /uL Dougherty # (Auto) 500 (0-900) /uL Eos # (Auto) 400 (0-450) /uL Baso # (Auto) 100 (0-100) /uL Sodium 139 (137-145) mmol/L Potassium 3.9 (3.4-5.1) mmol/L Chloride 100 (98-107) mmol/L Carbon Dioxide 25 (22-32) mmol/L BUN 14 (9-20) mg/dL Creatinine 0.90 (0.66-1.25) mg/dL Estimated GFR > 60.0 (>60) mL/min BUN/Creatinine Ratio 15.6 (6-22) Glucose 351 H (70-100) mg/dL Calcium 9.4 (8.4-10.2) mg/dL Total Bilirubin 1.0 (0.2-1.3) mg/dL AST 41 (17-59) IU/L ALT 76 H (21-72) IU/L Alkaline Phosphatase 83 (38-126) U/L Total Creatine Kinase 55 (55-170) U/L CK-MB (CK-2) TNP CK-MB (CK-2) Rel Index TNP Troponin I < 0.012 (0.01-0.034) ng/mL Total Protein 7.6 (6.3-8.2) g/dL Albumin 4.6 (3.5-5.0) g/dL Globulin 3.0 (1.7-4.1) g/dL Albumin/Globulin Ratio 1.5 (1.0-2.8) Point of Care Testing Glucose POC 284 Urine Dip Bedside Urine Glucose 1000 mg/dl Bedside Urine Bilirubin - Negative Bedside Urine Ketone +/- 5 Urine Specific Marion 1.015 Bedside Urine Occult Blood - Negative Bedside Urine pH 6 Bedside Urine Protein - Negative Bedside Urine Urobilinogen +/- 1mg Bedside Urine Nitrite - Negative Bedside Urine Leukocytes - Negative Esterase Imaging Data CT scan - head: Radiologist's impression: [address] [address] [address] Scan Report Signed Patient: Marquez Singleton [facility]#: [id number] : 1975Acct:[id number] Age/Sex: 43 / MDate of Service: 11/25/18 Loc: ED Accession Number: [id number] Procedure: CT head/brain wo con Ordering Provider: Marlen Real D.O. PROCEDURE: CT HEAD/BRAIN WO CON INDICATIONS: headaches, hypertension TECHNIQUE: Noncontrast 4.5 mm thick angled axial sections acquired from the foramen magnum to the vertex, with coronal and sagittal reformats. For radiation dose reduction, the following was used: automated exposure control, adjustment of mA and/or kV according to patient size. COMPARISON: None. FINDINGS: Image quality: Excellent. CSF spaces: Basal cisterns are patent. No extra-axial fluid collections. Ventricles are normal in size and shape. Brain: No midline shift. No intracranial masses or hemorrhage. Estevez-white matter interface is normal. Skull and face: Calvarium and visualized facial bones are intact, without suspicious lesions. Sinuses: Visualized sinuses and mastoids are clear. IMPRESSION: Normal intracranial study, without hemorrhage. Dictated by: Jonah Coleman M.D. on 11/25/2018 at 8:59 Approved by: Jonah Coleman M.D. on 11/25/2018 at 9:00 Chest x-ray: Radiologist's impression: [address] [address] XRay Report Signed Patient: Marquez Singleton [facility]#: [id number] : 1975Acct:[id number] Age/Sex: 43 / MDate of Service: 11/25/18 Loc: ED Accession Number: [id number] Procedure: XR chest 1V Ordering Provider: Marlen Real D.O. PROCEDURE: XR CHEST 1V INDICATIONS: hypertension TECHNIQUE: One view of the chest was acquired. COMPARISON: [facility], , XR CHEST 2V, 08/20/2018, 13:21. FINDINGS: Surgical changes and devices: None. Lungs and pleura: Lungs are clear. No pleural effusions or pneumothorax. Mediastinum: Mediastinal contours appear normal. Heart size is normal. Bones and chest wall: No suspicious bony lesions. Overlying soft tissues appear unremarkable. IMPRESSION: No acute process. Dictated by: Deni Pink M.D. on 11/25/2018 at 9:45 Approved by: Deni Pink M.D. on 11/25/2018 at 9:46 ECG Data Attestation: I personally reviewed and interpreted this ECG as follows: Prior ECG tracings: not available for review Interpretation: Sinus rhythm with incomplete right bundle branch, left and future fascicular block. Stated 98 P are 127 QRS of 109 and QTC of 402. Q-wave in [address] elevation. No prior for review. MDM Narrative Medical decision making narrative: Patient has had chronic headaches for a prolonged period of time. Likely this is secondary to his typical headache pattern. Head CT and chest x-ray are negative, he is hyperglycemic but no other acute changes noted on his lab work. He described a blood pressure of 204 at home but was 150 upon arrival 95 which appears improved from his last doctor's visit of 166/114. Discussed with patient plan to continue with follow-up with his primary care as well as further evaluation for his hypertension. I would not adjust his medications at this time. He received fluids as well as some Reglan and this was probably helpful for his headache but made him feel antsy. Patient was given Benadryl 25 mg. Urine shows, glucose and ketones. he does not have an anion gap of blood work. Bicarb is appropriate. No DKA> He is a little hyperglycemic numbers are slightly improved with a L of fluids. Discharge Plan Departure Patient Disposition: Home Clinical Impression: Headache, Hypertension, Hyperglycemia Discharge Date/Time: 11/25/18 11:48 Interventions: ED Discharge Assessment Last Done: 11/25/18 11:44 Activity Restrictions/Additional Instructions: Follow-up with your primary care physician for blood pressure recheck. I also agree with that your plan have renal ultrasound for evaluation because of your hypertension. I would also discussed with your physician about getting your CPAP replaced, this can also affect your blood pressure. Continue home medications as prescribed. Return to the emergency department for fevers could 100.4 F, sudden severe headaches, passing out, new vision changes, new weakness, numbness, difficulty with speech, chest pain, shortness of breath, persistent vomiting, black or bloody stools or other new or concerning symptoms. Prescriptions: No Action glyburide 5 mg tablet 5 mg PO DAILY Qty: 90 RF: 3 levothyroxine [Synthroid] 175 mcg tablet 175 mcg PO DAILY RF: 0 loratadine 10 mg capsule 10 mg PO DAILY RF: 0 Chantix Starting Month Box 0.5 mg (11)- 1 mg (42) tablets,dose pack See Rx Instructions PO PER PKG DIR Qty: 53 RF: 0 azelastine 0.05 % drops 1 drop ophthalmic (eye) BID PRN (Reason: Seasonal allergies) Qty: 6 RF: 5 losartan 100 mg tablet 100 mg PO DAILY Qty: 90 RF: 3 losartan 25 mg tablet 25 mg PO DAILY Qty: 90 RF: 3 sumatriptan succinate [Imitrex] 25 mg tablet See Rx Instructions PO .COMPLEX Qty: 30 RF: 3 spironolacton-hydrochlorothiaz 50-50 mg tablet 1 tab PO DAILY Qty: 90 RF: 3 amlodipine 5 mg tablet 5 mg PO DAILY Qty: 30 RF: 2 metformin 500 mg tablet extended release 24 hr 2,000 mg PO BEDTIME RF: 0 ondansetron 4 mg tablet,disintegrating 4 mg PO Q6-8H PRN (Reason: nausea and vomiting) Qty: 10 RF: 0 Referrals: Veena Miles ARNP [Primary Care Provider] -
[2018-11-25 09:42] LABS: Add Manual Diff / Slide Review NO; Basophils Absolute Auto 100 /uL (0-100); Eosinophils Absolute Auto 400 /uL (0-450); Eosinophils Percent Auto 3.9 % (2-4); Hematocrit 50.4 % (41-53); Hemoglobin 17.8 g/dL (13.5-17.5); Lymphocytes Absolute Auto 2700 /uL (1100-4500); Lymphocytes Percent Auto 25.2 % (25-40); Mean Corpuscular HGB Conc 35.3 % (30-36); Mean Corpuscular Hemoglobin 31.2 PG (26-34); Mean Corpuscular Volume 88.4 fL (80-100); Monocytes Absolute Auto 500 /uL (0-900); Monocytes Percent Auto 5.1 % (3-14); Neutrophils Absolute Auto 6900 /uL (1500-7000); Neutrophils Percent Auto 64.8 % (50-75); Platelet Count 256 X10^3/uL (150-400); Red Cell Distribution Width 13.2 % (11.6-14.8); White Blood Cell Count 10.7 X10^3/uL (4.5-11.0)
[2018-11-25] MEDS: SODIUM CHLORIDE 0.9% 1,000 ML 1000 ML IV (09:42)
[2018-11-25] MEDS: METOCLOPRAMIDE 10 MG/2 ML INJ IV (09:43)
--- NOTE | 2018-11-25 09:46 | DI.CT.S_ITS ---
PROCEDURE: CT HEAD/BRAIN WO CON INDICATIONS: headaches, hypertension TECHNIQUE: Noncontrast 4.5 mm thick angled axial sections acquired from the foramen magnum to the vertex, with coronal and sagittal reformats. For radiation dose reduction, the following was used: automated exposure control, adjustment of mA and/or kV according to patient size. COMPARISON: None. FINDINGS: Image quality: Excellent. CSF spaces: Basal cisterns are patent. No extra-axial fluid collections. Ventricles are normal in size and shape. Brain: No midline shift. No intracranial masses or hemorrhage. Estevez-white matter interface is normal. Skull and face: Calvarium and visualized facial bones are intact, without suspicious lesions. Sinuses: Visualized sinuses and mastoids are clear. IMPRESSION: Normal intracranial study, without hemorrhage. Dictated by: Jonah Coleman M.D. on 11/25/2018 at 8:59 Approved by: Jonah Coleman M.D. on 11/25/2018 at 9:00
[2018-11-25 09:50] LABS: Alanine Aminotransferase 76 IU/L (21-72); Albumin 4.6 g/dL (3.5-5.0); Albumin Globulin Ratio 1.5 (1.0-2.8); Alkaline Phosphatase 83 U/L (38-126); Aspartate Aminotransferase 41 IU/L (17-59); BUN Creatinine Ratio 15.6 (6-22); Blood Urea Nitrogen 14 mg/dL (9-20); Calcium 9.4 mg/dL (8.4-10.2); Carbon Dioxide 25 mmol/L (22-32); Chloride 100 mmol/L (98-107); Creatine Kinase 55 U/L (55-170); Estimated Glomerular Filt Rate > 60.0 mL/min (>60); Glucose 351 mg/dL (70-100); HEMOLYSIS < 15 (0-50); Potassium 3.9 mmol/L (3.4-5.1); Sodium 139 mmol/L (137-145); Total Protein 7.6 g/dL (6.3-8.2)
[2018-11-25 10:00] VITALS: BP 147/84; PULSE 95; RESP 16; O2SAT 97
[2018-11-25 10:02] LABS: Troponin I < 0.012 ng/mL (0.01-0.034)
[2018-11-25] MEDS: diphenhydrAMINE 50 MG/ML VIAL 25 MG IV (10:31)
[2018-11-25 11:00] VITALS: BP 134/72; PULSE 100; RESP 21; O2SAT 96
[2018-11-25 11:44] VITALS: BP 148/84; PULSE 95; RESP 17; O2SAT 98
== END 2018-11-25 11:48 | disposition home or self-care (01) ==
PROVIDERS: Emergency Provider Emergency Medicine; PCP Nurse Practitioner
DX: R51 Headache (principal); I10 Essential (primary) hypertension; R73.9 Hyperglycemia, unspecified
CPT/HCPCS: 36591; 70450; 71045; 80053; 81003; 82550; 82962; 84484; 85025; 93005; 96361; 96374; 96375; 99283; 99285; J1200; J2765

== ENCOUNTER → 2018-12-28 10:58 | Outpatient (CLI) | payer OTHER, MEDICAID, SELFPAY ==
[2018-12-28 12:30] LABS: Hemoglobin A1C% w Est Avg Glu 8.5 % (4.0-6.0)
[2018-12-28 12:37] LABS: Blood Urea Nitrogen 12 mg/dL (9-20); Calcium 9.5 mg/dL (8.4-10.2); Carbon Dioxide 26 mmol/L (22-32); Chloride 104 mmol/L (98-107); Estimated Glomerular Filt Rate > 60.0 mL/min (>60); Glucose 274 mg/dL (70-100); HEMOLYSIS < 15 (0-50); Sodium 141 mmol/L (137-145)
== END ==
PROVIDERS: PCP Nurse Practitioner; Visit Provider Nurse Practitioner
DX: I10 Essential (primary) hypertension (principal); E11.9 Type 2 diabetes mellitus without complications; R89.9 Unspecified abnormal finding in specimens from other organs, systems and tissues
CPT/HCPCS: 36415; 80048; 83036

== ENCOUNTER → 2019-01-12 10:59 | Outpatient (CLI) | payer OTHER, MEDICAID, SELFPAY ==
--- NOTE | 2019-01-12 12:19 | DIET.PN ---
DIABETES Nutrition Initial Assessment:? ASSESS:?? Pt diagnosed with diabetes in 2014. States he was diagnosed through the and had some formal education then. He has a glucometer, but does not check his BG regularly. States he does not each much during the day because of his work schedule. Generally snacks on trailmix and other quick to-go items. Admits he drinks a large amount of milk and Gatorade. Main meal is dinner which generally includes larger portions of starch (ravioli?s, pizza). ?? LABS: Per pt report:? A1c: 8.5 ? MEDS:?Metformin XR 2000mg ?evening; Glyburide 5mg qd ? DIET: Per 24-hour recall:? B: na L: trailmix D: Little Caesar?s Hot n Ready; Ravioli?s; Gumbo; Spaghetti ? Weight: 257# Height: 75? BMI: 32.1 ? Exercise:? Active at work ([employer]) NUTRITION DX 1. Altered Nutrition related labs related to impaired glucose metabolism, lack of previous exposure to accurate nutrition information as evidenced by pt report, dx of diabetes, previous diet high in refined carbohydrates.? INTERVENTION(s): 1. Discussed pathophysiology of diabetes. Reviewed A1c and its correlation to blood glucose numbers. Discussed recommended BG ranges. 2. Discussed importance of self-monitoring, how often, and when to check. 3. Reviewed hyper/hypoglycemia and treatment. 4. Discussed impact of nutrition/diet on blood sugar control.? Discussed fed versus non-fed state.?? 5. Discussed the effect of carbohydrates/protein/fat on blood sugar control.? Stressed importance of consistent carbohydrate intake at each meal and provided instructions for recommended servings/portions of carbohydrates/protein per meal. Provided pt with educational material. 6. Reviewed carbohydrate counting and measuring carbohydrate content via serving sizes and reading nutrition labels.? Provided handouts.?? 7. Discussed the difference between simple versus complex carbohydrates and the effect of fiber on blood sugar control.? Discussed various methods to increase fiber content in diet. 8. Stressed importance of meal timing and not going >4-5 hours between meals. Encouraged adding protein to each meal to support glucose control. Discussed best protein options for heart health and to alleviate hunger. Patient agreeable. 9. Discussed healthy weight loss through diet and exercise to increase lean muscle mass.? MONITOR/EVALUATE: Anticipate good compliance.? Pt will schedule nutrition follow-up in 1 mo to review BG, weight, food record and discuss protein/fat.
== END ==
PROVIDERS: PCP Nurse Practitioner; Visit Provider Nurse Practitioner
DX: E11.9 Type 2 diabetes mellitus without complications (principal); Z79.84 Long term (current) use of oral hypoglycemic drugs
CPT/HCPCS: 97802

== ENCOUNTER 2019-06-27 15:09 | Emergency (ER) | payer OTHER, MEDICAID, SELFPAY ==
[2019-06-27 15:22] VITALS: BP 191/110; PULSE 93; RESP 20; TEMP 36.4; O2SAT 98
--- NOTE | 2019-06-27 15:50 | PC.NURSE ---
left lower tooth, fillings came out long time ago, bit on something ,and cracked the tooth, now with increase in pain, sensitivity. has dental appt on friday. denies fever,vomiting,able to drink water.
--- NOTE | 2019-06-27 16:05 | ED.DENTAL ---
HPI - Dental/Oral <Luz ColeLOYDA - Last Filed: 06/27/19 21:26> General Chief complaint: Dental/Oral Stated complaint: Left Side Jaw/Tooth Pain Time Seen by Provider: 06/27/19 15:45 Source: patient Mode of arrival: Ambulatory History of Present Illness HPI Narrative: 43yo male presents to the emergency department complaining of right lower tooth pain over the past 2 days. He states the cap on his tooth broke off a few months ago but then he started to feel increasing sweat swelling, pain, sensitivity to temperature, and sharp stabbing sensation every time he chews. Patient states he has a dentist appointment on Friday but states the pain is making him nauseated. Patient denies any fevers, chills sore throat, decreased hearing, neck pain, chest pain, shortness of breath, or other concerns. Related Data Home Medications Medication Instructions Recorded Confirmed levothyroxine 175 mcg tablet 175 mcg PO DAILY 08/10/18 04/19/19 loratadine 10 mg capsule 10 mg PO DAILY 08/10/18 04/19/19 metformin 2,000 mg PO BEDTIME 10/13/18 04/19/19 Previous Rx's Medication Instructions Recorded varenicline 0.5 mg (11)-1 mg (42) See Rx Instructions PO PER PKG DIR 08/10/18 tablets in a dose pack #53 each glyburide 5 mg tablet 5 mg PO DAILY #90 tab 09/10/18 ondansetron 4 mg PO Q6-8H PRN #10 tab 10/13/18 azelastine 0.05 % eye drops 1 drop OPHTHALMIC (EYE) BID PRN #6 11/09/18 ml losartan 100 mg tablet 100 mg PO DAILY #90 tab 11/09/18 losartan 25 mg tablet 25 mg PO DAILY #90 tab 11/09/18 sumatriptan succinate 25 mg tablet See Rx Instructions PO .COMPLEX 11/09/18 #30 tab amlodipine 10 mg tablet 10 mg PO DAILY #30 tab 12/14/18 spironolactone 50 0.5 tab PO DAILY #45 tab 12/21/18 mg-hydrochlorothiazide 50 mg tablet carvedilol 6.25 mg tablet 6.25 mg PO BID #60 tab 01/04/19 aunykuddub-urasmolbyowse-jxznbldq 1 cap PO Q6H PRN #30 cap 02/12/19 50 mg-325 mg-40 mg capsule verapamil 240 mg 24 hr 240 mg PO DAILY #60 cap 02/12/19 capsule,extended release erythromycin 5 mg/gram (0.5 %) eye 1 cm EYE-BOTH Q8H #1 gram 04/19/19 ointment penicillin V potassium 500 mg PO QID 7 Days #28 tab 06/27/19 Allergies Allergy/AdvReac Type Severity Reaction Status Date / Time rock Allergy Mild hives Verified 04/19/19 14:48 Review of Systems <LOYDA Morillo - Last Filed: 06/27/19 21:26> Review of Systems Narrative: REVIEW OF SYSTEMS: GENERAL: Denies fever or chills. HENT: No head trauma. Complains of dental pain, see HPI. EYES: Denies eye irritation or vision changes. NECK/LYMPHATIC: No lymphadenopathy. CARDIOVASCULAR: No chest pain. RESPIRATORY: No shortness of breath. INTEGUMENTARY: No rash. NEURO: No confusion. Patient History <LOYDA Morillo - Last Filed: 06/27/19 21:26> Medical History Dermatitis (Chronic ~2011) Headache (Chronic ~1984) Hearing loss (Chronic) Hypertension (Chronic ~2006) Hypothyroidism (Chronic ~2010) Non-insulin dependent type 2 diabetes mellitus (Chronic ~2013) SHIRLEY (obstructive sleep apnea) (Chronic ~2006) Seasonal allergies (Chronic) Wrist pain (Chronic ~2011) Surgical History Status post hernia repair (Resolved) Social History marital status: Smoking Status: Current every day smoker alcohol intake: current substance use type: marijuana Smoking Status: Current every day smoker alcohol intake frequency: holidays/special occasions only Substance Use Type: marijuana Exam <LOYDA Morillo - Last Filed: 06/27/19 21:26> Initial Vital Signs Initial Vital Signs: Vital Signs Temperature 97.5 F L 06/27/19 15:22 Pulse Rate 93 H 06/27/19 15:22 Respiratory Rate 20 06/27/19 15:22 Blood Pressure 191/110 H 06/27/19 15:22 Pulse Oximetry 98 06/27/19 15:22 PHYSICAL EXAMINATION: GENERAL: Alert, and cooperative. Answers questions promptly and appropriately. Vital signs noted. HENT: Normocephalic, atraumatic. Hearing intact. Oral mucosa is pink and moist. Erythematous gingiva around tooth 19, there is a to deformity that appears to be consistent with patient's report of the dental cap falling on, small amount of swelling. No significant swelling or erythema noted to inside of cheek, outside of face, submandibular glands, ear, or neck. EYES: Conjunctiva pink, sclera white, no periorbital swelling. No discharge. CARDIOVASCULAR: Regular rate. RESPIRATORY: Normal respiratory rate, trachea midline, airway patent. No stridor, nasal flaring or accessory muscle use. . MUSCULOSKELETAL: Normal gait and coordination. Equal tone and mass bilaterally. : Abdomen nontender SKIN: Warm, dry, soft, appropriate color for ethnicity. NEURO: Alert and Oriented X 3. Good coordination. PSYCH: Appropriate affect and mood. <Scar Horn DO - Last Filed: 06/30/19 03:18> Initial Vital Signs Initial Vital Signs: Vital Signs Temperature 97.5 F L 06/27/19 15:22 Pulse Rate 93 H 06/27/19 15:22 Respiratory Rate 20 06/27/19 15:22 Blood Pressure 191/110 H 06/27/19 15:22 Pulse Oximetry 98 06/27/19 15:22 Procedures <LOYDA Morillo - Last Filed: 06/27/19 21:26> Nerve Block Nerve Block 1: Time out performed: Yes Local Anesthetic: bupivacaine 0.5% Amount of anesthesia used (mL): 5 Side: left Nerve Blocks: other (Dental) Procedure Successful: Yes Patient Tolerated Procedure: Well Complications: none Course <LOYDA Morillo - Last Filed: 06/27/19 21:26> Course Course Narrative: Dental block was performed, patient reported decreased pain. Orders Ordered: Discontinued Medications Bupivacaine HCl (Sensorcaine 0.5% (Pf)) 5 ml SUBCUT NOW ONE Stop: 06/27/19 15:52 Last Admin: 06/27/19 16:13 Dose: 5 ml Documented by: MEISENB Consultations Consultation #1: Patient staffed with Dr. Horn. Vital Signs Vital signs: Vital Signs - 8 hr 06/27/19 15:22 Temperature 97.5 F L Pulse Rate 93 H Respiratory Rate 20 Blood Pressure 191/110 H Pulse Oximetry 98 <Scar Horn DO - Last Filed: 06/30/19 03:18> Orders Ordered: Discontinued Medications Bupivacaine HCl (Sensorcaine 0.5% (Pf)) 5 ml SUBCUT NOW ONE Stop: 06/27/19 15:52 Last Admin: 06/27/19 16:13 Dose: 5 ml Documented by: MEISENMeghan Vital Signs Vital signs: Vital Signs - 8 hr 06/27/19 15:22 Temperature 97.5 F L Pulse Rate 93 H Respiratory Rate 20 Blood Pressure 191/110 H Pulse Oximetry 98 MDM - Dental/Oral <LOYDA Morillo - Last Filed: 06/27/19 21:26> Medical Records Attestation: I reviewed the patient's medical records. Lab Data Attestation: I reviewed the patient's lab results. [facility] Narrative Medical decision making narrative: 43-year-old male presenting to emergency department with tooth pain and known lost dental cap. Dental block was performed which helped relieve pain. Penicillin to help with infection. Patient has an appointment next week with a dentist. He was encouraged to follow up as scheduled. Return precautions given for new or worsening symptoms. Less suspicion for sepsis due to lack of systemic symptoms such as fever, tachycardia, or other concerns. I believe that patient's nausea is most likely caused by pain due to lack of abdominal pain on examination or other symptoms diarrhea or fevers. Discharge Plan Departure Patient Disposition: Home Clinical Impression: Dental infection Discharge Date/Time: 06/27/19 16:23 Instructions: Tooth Abscess, DI for Dental Pain Activity Restrictions/Additional Instructions: Thank you for entrusting me with your care today. As discussed, it appears you have a dental infection. I have numbed the nerve that is involved with her pain. Please take the antibiotics as prescribed. Follow up with a dentist as soon as possible. Return emergency department for any new or worsening symptoms such as chest pain, shortness of breath, uncontrollable vomiting, high fevers, severe worsening pain, or concerns. Prescriptions: New penicillin V potassium 500 mg tablet 500 mg PO QID 7 Days Qty: 28 RF: 0 No Action erythromycin 5 mg/gram (0.5 %) ointment 1 cm EYE-BOTH Q8H Qty: 1 RF: 0 glyburide 5 mg tablet 5 mg PO DAILY Qty: 90 RF: 3 spironolacton-hydrochlorothiaz 50-50 mg tablet 0.5 tab PO DAILY Qty: 45 RF: 3 levothyroxine [Synthroid] 175 mcg tablet 175 mcg PO DAILY RF: 0 loratadine 10 mg capsule 10 mg PO DAILY RF: 0 Chantix Starting Month Box 0.5 mg (11)- 1 mg (42) tablets,dose pack See Rx Instructions PO PER PKG DIR Qty: 53 RF: 0 azelastine 0.05 % drops 1 drop ophthalmic (eye) BID PRN (Reason: Seasonal allergies) Qty: 6 RF: 5 losartan 100 mg tablet 100 mg PO DAILY Qty: 90 RF: 3 losartan 25 mg tablet 25 mg PO DAILY Qty: 90 RF: 3 sumatriptan succinate [Imitrex] 25 mg tablet See Rx Instructions PO .COMPLEX Qty: 30 RF: 3 amlodipine 10 mg tablet 10 mg PO DAILY Qty: 30 RF: 1 carvedilol 6.25 mg tablet 6.25 mg PO BID Qty: 60 RF: 1 metformin 500 mg tablet extended release 24 hr 2,000 mg PO BEDTIME RF: 0 ondansetron 4 mg tablet,disintegrating 4 mg PO Q6-8H PRN (Reason: nausea and vomiting) Qty: 10 RF: 0 ztzbcywtvn-kbdnhsuwhojdj-wzxg 50-325-40 mg capsule 1 cap PO Q6H PRN (Reason: pain) Qty: 30 RF: 0 verapamil 240 mg capsule,ext rel. pellets 24 hr 240 mg PO DAILY Qty: 60 RF: 2 Referrals: Veena Miles ARNP [Primary Care Provider] -
[2019-06-27] MEDS: BUPIVACAINE 0.5% (PF) VIAL 5 ML SUBCUT (16:13)
== END 2019-06-27 16:23 | disposition home or self-care (01) ==
PROVIDERS: Emergency Provider Nurse Practitioner; PCP Nurse Practitioner
DX: K04.7 Periapical abscess without sinus (principal)
CPT/HCPCS: 64450; 99281; 99283

== ENCOUNTER 2019-10-09 07:48 | Emergency (ER) | payer OTHER, MEDICAID, SELFPAY ==
[2019-10-09] VITALS (12 sets, daily range): BP systolic 176–216; BP diastolic 97–127; PULSE 78–106; RESP 14–20; TEMP 36.7; O2SAT 95–99; BMI 31.6
[2019-10-09 08:43] LABS: Add Manual Diff / Slide Review NO; Basophils Absolute Auto 100 /uL (0-100); Basophils Percent Auto 1.1 % (0-2); Eosinophils Absolute Auto 300 /uL (0-450); Eosinophils Percent Auto 3.4 % (2-4); Hematocrit 45.9 % (41-53); Hemoglobin 16.5 g/dL (13.5-17.5); Lymphocytes Absolute Auto 2000 /uL (1100-4500); Mean Corpuscular HGB Conc 36.1 % (30-36); Mean Corpuscular Hemoglobin 31.2 PG (26-34); Mean Corpuscular Volume 86.6 fL (80-100); Monocytes Absolute Auto 600 /uL (0-900); Monocytes Percent Auto 6.1 % (3-14); Neutrophils Absolute Auto 6200 /uL (1500-7000); Neutrophils Percent Auto 67.4 % (50-75); Platelet Count 231 X10^3/uL (150-400); Red Cell Distribution Width 13.3 % (11.6-14.8); White Blood Cell Count 9.2 X10^3/uL (4.5-11.0)
[2019-10-09] MEDS: SODIUM CHLORIDE 0.9% 1,000 ML 1000 ML IV (08:45)
[2019-10-09] MEDS: diphenhydrAMINE 50 MG/ML VIAL 25 MG IV (08:46)
[2019-10-09] MEDS: methylPREDNISolone 125 MG/2 ML VIAL IV (08:46)
[2019-10-09] MEDS: HALOPERIDOL 5 MG/ML VIAL 2 MG IV (08:46)
--- NOTE | 2019-10-09 08:48 | ED_ITS ---
HPI - Headache General Chief Complaint: Headache Stated Complaint: hx of migraines 1 1/2 weeks/worse yesterday Mode of arrival: Family Vehicle Limitations: no limitations History of Present Illness HPI Narrative: CC: Headache HPI: The patient is a 44-year-old male who has a history of migraines and hypertension. He complains of a bifrontal headache behind both eyes radiating into both temples. The headache is similar to his normal migraines but more intense than usual. The headache started earlier in the week and has persisted. It suddenly became worse yesterday and flared at that time. I am a tracks was taken a few days ago without any relief. The patient has been photophobic and phonophobia. His headache is 9 to 10/10 in intensity. He denies any fall or injury. He has had no scintillations or or aura noted. He admits to history of diabetes mellitus and hypertension but denies a history of seizures stroke myocardial infarction or asthma. He smokes cigarettes and smokes marijuana. He last used marijuana 3 days ago. He does not chew tobacco or drink any alcohol. His blood pressure on admission was 216/127. When I was seeing the patient is blood pressure a dropped to 198/112. Related Data Home Medications Medication Instructions Recorded Confirmed levothyroxine 175 mcg tablet 175 mcg PO DAILY 08/10/18 04/19/19 loratadine 10 mg capsule 10 mg PO DAILY 08/10/18 04/19/19 metformin 2,000 mg PO BEDTIME 10/13/18 04/19/19 Previous Rx's Medication Instructions Recorded varenicline 0.5 mg (11)-1 mg (42) See Rx Instructions PO PER PKG DIR 08/10/18 tablets in a dose pack #53 each glyburide 5 mg tablet 5 mg PO DAILY #90 tab 09/10/18 ondansetron 4 mg PO Q6-8H PRN #10 tab 10/13/18 azelastine 0.05 % eye drops 1 drop OPHTHALMIC (EYE) BID PRN #6 11/09/18 ml losartan 100 mg tablet 100 mg PO DAILY #90 tab 11/09/18 losartan 25 mg tablet 25 mg PO DAILY #90 tab 11/09/18 sumatriptan succinate 25 mg tablet See Rx Instructions PO .COMPLEX 11/09/18 #30 tab amlodipine 10 mg tablet 10 mg PO DAILY #30 tab 12/14/18 spironolactone 50 0.5 tab PO DAILY #45 tab 12/21/18 mg-hydrochlorothiazide 50 mg tablet carvedilol 6.25 mg tablet 6.25 mg PO BID #60 tab 01/04/19 wykrggxgob-hdvfotufwlgzu-mslmeeor 1 cap PO Q6H PRN #30 cap 02/12/19 50 mg-325 mg-40 mg capsule verapamil 240 mg 24 hr 240 mg PO DAILY #60 cap 02/12/19 capsule,extended release erythromycin 5 mg/gram (0.5 %) eye 1 cm EYE-BOTH Q8H #1 gram 04/19/19 ointment diphenhydramine HCl [Benadryl] 25 mg PO Q6H PRN #20 cap 10/09/19 naproxen [Naprosyn] 500 mg PO BID PRN #20 tab 10/09/19 prochlorperazine [Compazine] 25 mg OK Q12H PRN #12 each 10/09/19 Allergies Allergy/AdvReac Type Severity Reaction Status Date / Time metoclopramide [From Reglan] Allergy Severe Irritable Verified 10/09/19 08:13 rock Allergy Mild hives Verified 10/09/19 08:13 Review of Systems Review of Systems Narrative: REVIEW OF SYSTEMS: CONSTITUTIONAL: The patient denies any fever chills but always has some degree of sweating. NEUROLOGICAL: Associated with his headache he denies any numbness tingling par esthesias anesthesia is or paresis. EENT: He has had some mild blurred vision but denies any loss of vision scotomata diplopia or scintillations. He has had no nasal congestion or sinus congestion or trouble swallowing. CARDIO-PULMONARY: He denies any chest pain shortness of breath or cough. l HEMOTOLOGICAL: He has had no bleeding abnormalities or bruising. GASTROINTESTINAL: He denies any abdominal pain but has had nausea vomiting and diarrhea. GENITAL URINARY: He has had no urinary symptoms. MUSCULOSKELETAL/ RHEUMATOLOGICAL: He has had no back pain. Patient History Medical History Dermatitis (Chronic ~2011) Headache (Chronic ~1984) Hearing loss (Chronic) Hypertension (Chronic ~2006) Hypothyroidism (Chronic ~2010) Non-insulin dependent type 2 diabetes mellitus (Chronic ~2013) SHIRLEY (obstructive sleep apnea) (Chronic ~2006) Seasonal allergies (Chronic) Wrist pain (Chronic ~2011) Surgical History Status post hernia repair (Resolved) Social History marital status: Smoking Status: Current every day smoker alcohol intake: current substance use type: marijuana Smoking Status: Current every day smoker tobacco type: cigarettes alcohol intake frequency: 0-2 drinks per day Substance Use Type: marijuana Exam Narrative Exam Narrative: PHYSICAL EXAM: CONSTITUTIONAL: Awake, Alert, Oriented, Coherent, Cooperative in moderate distress slow to respond and moved. HEAD: AT/NC mild tenderness over both temples without any nodularity. EENT: PERRL, FROM of eyes, no discharge, no nystagmus MOUTH:Oral mucosa is moist and pink, posterior pharynx is without erythema or exudate. NECK: Supple, no obvious JVD, Trachea is midline without stridor, no palpable LN. SPINE: Palpationof the cervical, Thoracic, Lumbar or Sacral spine reveals no gross deformity or tenderness. No CVA tenderness. THORAX: No deformity, retractions, chest wall tenderness. LUNGS: Clear, symmetrical breath sounds without respiratory distress. HEART: Normal heart tones, regular rhythm and rate without murmur. ABDOMEN: Soft, non-tender, normal bowel sounds without guarding, rebound, rigi dity or palpable mass. EXTREMITIES: No edema, deformity, tenderness or cyanosis. SKIN: No rash, bruising, petechiae or purpura. NEURO: Awake, alert, oriented, conversive, cranial nerves II-XII are symmetrical , moves all 4 extremities and is ambulatory. Initial Vital Signs Initial Vital Signs: Vital Signs Pulse Rate 95 H 10/09/19 08:00 Respiratory Rate 20 10/09/19 08:00 Blood Pressure 200/117 H 10/09/19 08:00 Pulse Oximetry 99 10/09/19 08:00 Course Course Course Narrative: 1048: His CT scan is negative for any intracranial pathology or hemorrhage. His headache is significantly improved and is now 3/10 in intensity but not resolved. I will administer magnesium to the patient. His blood pressure remains elevated at 192 over 110. Will administer another 10 mg of hydralazine. 1221: The patient's headache is much improved. It is 2 to 3/10 in intensity. The patient will be discharged home. He will be discharged home on Compazine 25 mg q.12 hours, Benadryl 25-50 mg prior to taken to the Compazine and Naprosyn 500 mg b.i.d.. He was instructed to continue to use his I am a tracks as prescribed. Orders Ordered: Discontinued Medications Diphenhydramine HCl (Benadryl) 25 mg IV NOW ONE Stop: 10/09/19 08:40 Last Admin: 10/09/19 08:46 Dose: 25 mg Documented by: JAY Haloperidol (Haldol) 2 mg IV NOW ONE Stop: 10/09/19 08:39 Last Admin: 10/09/19 08:46 Dose: 2 mg Documented by: JAY Hydralazine HCl (Apresoline) 10 mg IV Q6HR PRN PRN Reason: Hypertension Last Admin: 10/09/19 09:35 Dose: 10 mg Documented by: JAY Hydralazine HCl (Apresoline) 10 mg IV NOW ONE Stop: 10/09/19 10:50 Last Admin: 10/09/19 11:17 Dose: 10 mg Documented by: JAY Sodium Chloride (Normal Saline 0.9%) 1,000 mls @ 1,000 mls/hr IV BOLUS ONE Stop: 10/09/19 09:37 Last Infusion: 10/09/19 11:19 Dose: 0 mls/hr Documented by: Admin: 10/09/19 08:45 Dose: 1,000 mls/hr Documented by: JAY Magnesium Sulfate (Magnesium Sulfate) 2 gm in 50 mls @ 50 mls/hr IV NOW ONE Stop: 10/09/19 11:48 Last Infusion: 10/09/19 12:18 Dose: 0 mls/hr Documented by: SHIN Cosigned by: JAY Admin: 10/09/19 11:17 Dose: 50 mls/hr Documented by: JAY Cosigned by: ALEIDA Ketorolac Tromethamine (Toradol) 30 mg IV NOW ONE Stop: 10/09/19 09:05 Last Admin: 10/09/19 09:38 Dose: 30 mg Documented by: JAY Methylprednisolone (Solu-Medrol 125 Mg Vial) 125 mg IV NOW ONE Stop: 10/09/19 08:41 Last Admin: 10/09/19 08:46 Dose: 125 mg Documented by: JAY Vital Signs Vital signs: Vital Signs - 8 hr 10/09/19 12:20 10/09/19 12:48 Pulse Rate 98 H 97 H Respiratory Rate 15 18 Blood Pressure 194/102 H Blood Pressure [Left Arm] 176/106 H Pulse Oximetry 98 98 MDM - Headache Medical Records Attestation: I reviewed the patient's medical records. Lab Data Attestation: I reviewed the patient's lab results. Result diagrams: 10/09/19 08:31 10/09/19 08:31 Labs: Lab Results 10/09/19 10/09/19 10/09/19 Range/Units 08:31 08:31 08:31 WBC 9.2 (4.5-11.0) X10^3/uL RBC 5.30 (4.5-5.9) X10^6/uL Hgb 16.5 (13.5-17.5) g/dL Hct 45.9 (41-53) % MCV 86.6 (80-100) fL MCH 31.2 (26-34) PG MCHC 36.1 H (30-36) % RDW 13.3 (11.6-14.8) % Plt Count 231 (150-400) X10^3/uL Neut % (Auto) 67.4 (50-75) % Lymph % (Auto) 22.0 L (25-40) % Mcnairy % (Auto) 6.1 (3-14) % Eos % (Auto) 3.4 (2-4) % Baso % (Auto) 1.1 (0-2) % Neut # (Auto) 6200 (5812-8353) /uL Lymph # (Auto) 2000 (7072-2149) /uL Mcnairy # (Auto) 600 (0-900) /uL Eos # (Auto) 300 (0-450) /uL Baso # (Auto) 100 (0-100) /uL PT 11.4 (10.1-12.7) SECONDS INR 1.0 (0.9-1.3) APTT 26 L (26.4-36.2) SECONDS Sodium 134 L (137-145) mmol/L Potassium 4.5 (3.4-5.1) mmol/L Chloride 97 L (98-107) mmol/L Carbon Dioxide 26 (22-32) mmol/L BUN 12 (9-20) mg/dL Creatinine 0.69 (0.66-1.25) mg/dL Estimated GFR > 60.0 (>60) mL/min BUN/Creatinine Ratio 17.4 (6-22) Glucose 431 H (70-100) mg/dL Calcium 10.7 H (8.4-10.2) mg/dL Total Bilirubin 0.7 (0.2-1.3) mg/dL AST 38 (17-59) IU/L ALT 55 H (<50) IU/L Alkaline Phosphatase 108 (38-126) U/L Total Creatine Kinase 47 L (55-170) U/L CK-MB (CK-2) TNP CK-MB (CK-2) Rel Index TNP Troponin I < 0.012 (0.01-0.034) ng/mL Total Protein 7.9 (6.3-8.2) g/dL Albumin 4.7 (3.5-5.0) g/dL Globulin 3.2 (1.7-4.1) g/dL Albumin/Globulin Ratio 1.5 (1.0-2.8) Lipase 201 (23-300) U/L Urine Dip Bedside Urine Glucose 1000 mg/dl Bedside Urine Bilirubin - Negative Bedside Urine Ketone + 15 Urine Specific Avery 1.015 Bedside Urine Occult Blood - Negative Bedside Urine pH 6.0 Bedside Urine Protein - Negative Bedside Urine Urobilinogen - Negative Bedside Urine Nitrite - Negative Bedside Urine Leukocytes - Negative Esterase ECG Data Attestation: I personally reviewed and interpreted this ECG as follows: Interpretation: The patient's EKG reveals a normal sinus rhythm with a ventricular rate of 93. His QRS is 106 milliseconds duration. QTC is normal at 440 milliseconds. He has normal axis. He has inverted T-waves in leads III. His ST segments are otherwise within normal limits. There are no other acute diagnostic ST segment or T-wave changes. There is no acute changes to suggest ischemia or infarct at this time. Discharge Plan Departure Patient Disposition: Home Clinical Impression: Migraine headache without aura Qualifiers: Status migrainosus presence: without status migrainosus Intractability: not intractable Qualified Code(s): G43.009 - Migraine without aura, not intractable, without status migrainosus Hypertension Qualifiers: Hypertension type: essential hypertension Qualified Code(s): I10 - Essential (primary) hypertension Discharge Date/Time: 10/09/19 12:49 Instructions: DI for Migraine, DI for Malignant Hypertension, DI for Headache Activity Restrictions/Additional Instructions: 1. Your CT scan was negative for any bleeding or intracranial pathology. Your blood pressure has improved with the medications. You need to make sure that you are taking your antihypertensive medications and follow-up with your primary care physician to take the antihypertensive medications as prescribed. 2. If you develop fever worsening headache recurrent headache you need to return to the emergency department. 3. Continue to use your Imitrex as prescribed. 4. For the pain and discomfort take the Naprosyn 500 mg twice a day. Use the Compazine rectal suppositories 25 mg twice a day for nausea vomiting severe headache. Prior to taking the Compazine take 25 mg to 50 mg of Benadryl orally then take the Compazine. 5. If you develop any increased confusion disorientation dizziness she need to return to the emergency department. Prescriptions: New prochlorperazine [Compazine] 25 mg suppository 25 mg OK Q12H PRN (Reason: nausea and vomiting and headache) Qty: 12 RF: 0 diphenhydramine HCl [Benadryl] 25 mg capsule 25 mg PO Q6H PRN (Reason: nausea and vomiting) Qty: 20 RF: 0 naproxen [Naprosyn] 500 mg tablet 500 mg PO BID PRN (Reason: pain) Qty: 20 RF: 0 No Action erythromycin 5 mg/gram (0.5 %) ointment 1 cm EYE-BOTH Q8H Qty: 1 RF: 0 glyburide 5 mg tablet 5 mg PO DAILY Qty: 90 RF: 3 spironolacton-hydrochlorothiaz 50-50 mg tablet 0.5 tab PO DAILY Qty: 45 RF: 3 levothyroxine [Synthroid] 175 mcg tablet 175 mcg PO DAILY RF: 0 loratadine 10 mg capsule 10 mg PO DAILY RF: 0 Chantix Starting Month Box 0.5 mg (11)- 1 mg (42) tablets,dose pack See Rx Instructions PO PER PKG DIR Qty: 53 RF: 0 azelastine 0.05 % drops 1 drop ophthalmic (eye) BID PRN (Reason: Seasonal allergies) Qty: 6 RF: 5 losartan 100 mg tablet 100 mg PO DAILY Qty: 90 RF: 3 losartan 25 mg tablet 25 mg PO DAILY Qty: 90 RF: 3 sumatriptan succinate [Imitrex] 25 mg tablet See Rx Instructions PO .COMPLEX Qty: 30 RF: 3 amlodipine 10 mg tablet 10 mg PO DAILY Qty: 30 RF: 1 carvedilol 6.25 mg tablet 6.25 mg PO BID Qty: 60 RF: 1 metformin 500 mg tablet extended release 24 hr 2,000 mg PO BEDTIME RF: 0 ondansetron 4 mg tablet,disintegrating 4 mg PO Q6-8H PRN (Reason: nausea and vomiting) Qty: 10 RF: 0 ehbkxryxnz-xatnikstrgavh-ekpl 50-325-40 mg capsule 1 cap PO Q6H PRN (Reason: pain) Qty: 30 RF: 0 verapamil 240 mg capsule,ext rel. pellets 24 hr 240 mg PO DAILY Qty: 60 RF: 2 Referrals: Veena Miles ARNP [Primary Care Provider] -
--- NOTE | 2019-10-09 08:51 | DI.CT.S_ITS ---
PROCEDURE: CT HEAD/BRAIN WO CON INDICATIONS: h/o migraines, ABDULLAHI with severe hypertension TECHNIQUE: Noncontrast 4.5 mm thick angled axial sections acquired from the foramen magnum to the vertex, with coronal and sagittal reformats. For radiation dose reduction, the following was used: automated exposure control, adjustment of mA and/or kV according to patient size. COMPARISON: [facility], CT, CT HEAD/BRAIN WO CON, 11/25/2018, 9:48. FINDINGS: Image quality: Excellent. CSF spaces: Basal cisterns are patent. No extra-axial fluid collections. Ventricles are normal in size and shape. Brain: No midline shift. No intracranial masses or hemorrhage. Estevez-white matter interface is normal. Skull and face: Calvarium and visualized facial bones are intact, without suspicious lesions. Sinuses: Visualized sinuses and mastoids are clear. IMPRESSION: No acute intracranial hemorrhage is seen. Unremarkable intracranial study. Stable from prior. Dictated by: Jonah Coleman M.D. on 10/09/2019 at 9:01 Approved by: Jonah Coleman M.D. on 10/09/2019 at 9:02
[2019-10-09 08:52] LABS: Prothrombin Time 11.4 SECONDS (10.1-12.7)
[2019-10-09 08:54] LABS: PTT Partial Thromboplastin Tim 26 SECONDS (26.4-36.2)
[2019-10-09 08:55] LABS: Alanine Aminotransferase 55 IU/L (<50); Albumin 4.7 g/dL (3.5-5.0); Albumin Globulin Ratio 1.5 (1.0-2.8); Alkaline Phosphatase 108 U/L (38-126); Aspartate Aminotransferase 38 IU/L (17-59); BUN Creatinine Ratio 17.4 (6-22); Bilirubin Total 0.7 mg/dL (0.2-1.3); Blood Urea Nitrogen 12 mg/dL (9-20); Calcium 10.7 mg/dL (8.4-10.2); Carbon Dioxide 26 mmol/L (22-32); Chloride 97 mmol/L (98-107); Creatine Kinase 47 U/L (55-170); Estimated Glomerular Filt Rate > 60.0 mL/min (>60); Globulin 3.2 g/dL (1.7-4.1); Glucose 431 mg/dL (70-100); HEMOLYSIS < 15 (0-50); Lipase 201 U/L (23-300); Potassium 4.5 mmol/L (3.4-5.1); Sodium 134 mmol/L (137-145); Total Protein 7.9 g/dL (6.3-8.2)
[2019-10-09 09:07] LABS: Troponin I < 0.012 ng/mL (0.01-0.034)
[2019-10-09] MEDS: HYDRALAZINE 20 MG/ML VIAL 10 MG IV ×2 (09:35→11:17)
[2019-10-09] MEDS: KETOROLAC 60 MG/2 ML VIAL 30 MG IV (09:38)
[2019-10-09] MEDS: MAGNESIUM SULFATE 2 GM/50 ML PIGGYBACK IV (11:17)
== END 2019-10-09 12:49 | disposition home or self-care (01) ==
PROVIDERS: Emergency Provider Emergency Medicine; PCP Nurse Practitioner
DX: G43.009 Migraine without aura, not intractable, without status migrainosus (principal); I10 Essential (primary) hypertension
CPT/HCPCS: 36415; 70450; 80053; 81003; 82550; 83690; 84484; 85025; 85610; 85730; 93005; 96361; 96374; 96375; 96376; 99284; J0360; J1200; J1630; J1885; J2930

== ENCOUNTER → 2019-12-13 10:33 | Outpatient (CLI) | payer OTHER, MEDICAID, SELFPAY ==
[2019-12-13 11:02] LABS: Add Manual Diff / Slide Review NO; Basophils Absolute Auto 100 /uL (0-100); Basophils Percent Auto 0.8 % (0-2); Eosinophils Absolute Auto 300 /uL (0-450); Hematocrit 44.9 % (41-53); Hemoglobin 15.9 g/dL (13.5-17.5); Lymphocytes Absolute Auto 2500 /uL (1100-4500); Mean Corpuscular HGB Conc 35.5 % (30-36); Mean Corpuscular Volume 87.3 fL (80-100); Monocytes Absolute Auto 500 /uL (0-900); Monocytes Percent Auto 5.4 % (3-14); Neutrophils Absolute Auto 5600 /uL (1500-7000); Neutrophils Percent Auto 62.8 % (50-75); Platelet Count 235 X10^3/uL (150-400); Red Blood Cell Count 5.14 X10^6/uL (4.5-5.9); Red Cell Distribution Width 13.5 % (11.6-14.8)
[2019-12-13 11:30] LABS: Alanine Aminotransferase 82 IU/L (<50); Albumin 4.5 g/dL (3.5-5.0); Albumin Globulin Ratio 1.6 (1.0-2.8); Alkaline Phosphatase 100 U/L (38-126); Aspartate Aminotransferase 52 IU/L (17-59); BUN Creatinine Ratio 11.8 (6-22); Bilirubin Total 0.6 mg/dL (0.2-1.3); Blood Urea Nitrogen 8 mg/dL (9-20); Calcium 9.2 mg/dL (8.4-10.2); Carbon Dioxide 28 mmol/L (22-32); Chloride 102 mmol/L (98-107); Cholesterol 190 mg/dL (140-199); Estimated Glomerular Filt Rate > 60.0 mL/min (>60); Globulin 2.8 g/dL (1.7-4.1); Glucose 298 mg/dL (70-100); HDL Cholesterol 35 mg/dL (40-60); HEMOLYSIS < 15 (0-50); LDL Cholesterol Calculated 103 mg/dL (<100); Potassium 3.8 mmol/L (3.4-5.1); Sodium 136 mmol/L (137-145); Total Protein 7.3 g/dL (6.3-8.2); Triglycerides 262 mg/dL (35-150)
[2019-12-13 11:51] LABS: Hemoglobin A1C% w Est Avg Glu 11.1 % (4.0-6.0)
[2019-12-13 12:39] LABS: Free T3, Triiodothyronine Free 3.32 pg/mL (2.77-5.27)
[2019-12-13 12:52] LABS: Thyroid Stimulating Hormone 3.19 uIU/mL (0.47-4.68)
== END ==
PROVIDERS: PCP Nurse Practitioner; Referring Provider Nurse Practitioner; Visit Provider Nurse Practitioner
DX: E03.9 Hypothyroidism, unspecified (principal); E11.9 Type 2 diabetes mellitus without complications; E78.5 Hyperlipidemia, unspecified; F17.200 Nicotine dependence, unspecified, uncomplicated; G43.009 Migraine without aura, not intractable, without status migrainosus; I10 Essential (primary) hypertension; Z79.899 Other long term (current) drug therapy
CPT/HCPCS: 36415; 80053; 80061; 83036; 84439; 84443; 84481; 85025

== ENCOUNTER → 2020-01-10 11:58 | Outpatient (CLI) | payer OTHER, MEDICAID, SELFPAY | PROVIDERS: PCP Nurse Practitioner; Visit Provider Nurse Practitioner | DX: R19.7 Diarrhea, unspecified (principal) ==

== ENCOUNTER → 2020-01-10 13:10 | Outpatient (CLI) | payer OTHER, MEDICAID, SELFPAY ==
[2020-01-10 13:22] LABS: Bacteria Urine None Seen; RBC Urine None Seen (0-5/HPF); WBC Urine None Seen (0-5/HPF)
[2020-01-10 14:05] LABS: Appearance Urine UA CLEAR; Bilirubin Urine UA NEGATIVE (NEGATIVE); Color Urine UA YELLOW; Glucose Urine UA 2+ g/dL (Negative); Ketones Urine UA NEGATIVE (NEGATIVE); Leukocyte Esterase Urine UA NEGATIVE (NEGATIVE); Nitrite Urine UA NEGATIVE (Negative); Occult Blood Urine UA NEGATIVE (Negative); Protein Urine UA NEGATIVE (Negative); Specific Gravity Urine UA 1.015 (1.000-1.035); Urobilinogen Urine UA 0.2 E.U./dL (0.2)
[2020-01-10 14:11] LABS: Add Manual Diff / Slide Review NO; Basophils Absolute Auto 100 /uL (0-100); Basophils Percent Auto 0.6 % (0-2); Culture Indicated Urine Cult Not Indicated; Eosinophils Absolute Auto 300 /uL (0-450); Eosinophils Percent Auto 2.3 % (2-4); Hematocrit 44.1 % (41-53); Hemoglobin 15.8 g/dL (13.5-17.5); Lymphocytes Absolute Auto 3400 /uL (1100-4500); Lymphocytes Percent Auto 29.7 % (25-40); Mean Corpuscular HGB Conc 35.8 % (30-36); Mean Corpuscular Hemoglobin 31.2 PG (26-34); Monocytes Absolute Auto 600 /uL (0-900); Monocytes Percent Auto 5.4 % (3-14); Neutrophils Absolute Auto 7100 /uL (1500-7000); Platelet Count 239 X10^3/uL (150-400); Red Blood Cell Count 5.07 X10^6/uL (4.5-5.9); Red Cell Distribution Width 12.9 % (11.6-14.8); Urine Comments Microscopic Normal; White Blood Cell Count 11.4 X10^3/uL (4.5-11.0)
[2020-01-10 14:27] LABS: Alanine Aminotransferase 63 IU/L (<50); Albumin 4.6 g/dL (3.5-5.0); Albumin Globulin Ratio 1.5 (1.0-2.8); Alkaline Phosphatase 99 U/L (38-126); Aspartate Aminotransferase 32 IU/L (17-59); BUN Creatinine Ratio 19.4 (6-22); Bilirubin Total 0.7 mg/dL (0.2-1.3); Blood Urea Nitrogen 20 mg/dL (9-20); Calcium 9.3 mg/dL (8.4-10.2); Carbon Dioxide 30 mmol/L (22-32); Chloride 94 mmol/L (98-107); Estimated Glomerular Filt Rate > 60.0 mL/min (>60); Glucose 408 mg/dL (70-100); HEMOLYSIS < 15 (0-50); Potassium 3.7 mmol/L (3.4-5.1); Sodium 135 mmol/L (137-145); Total Protein 7.6 g/dL (6.3-8.2)
== END ==
PROVIDERS: PCP Nurse Practitioner; Referring Provider Nurse Practitioner; Visit Provider Nurse Practitioner
DX: R19.7 Diarrhea, unspecified (principal); R23.2 Flushing; R53.83 Other fatigue; R61 Generalized hyperhidrosis
CPT/HCPCS: 36415; 80053; 81001; 85025

== ENCOUNTER → 2020-01-11 09:51 | Outpatient (CLI) | payer OTHER, MEDICAID, SELFPAY ==
--- NOTE | 2020-01-11 09:54 | DI.US.S_ITS ---
PROCEDURE: US ABDOMEN COMPLETE INDICATIONS: RIGHT UPPER QUADRANT PAIN TECHNIQUE: Real-time scanning was performed of the abdominal and retroperitoneal organs, with image documentation. COMPARISON: [facility] Ultrasound, US, US RENAL ARTERIAL DOPPLER, 12/01/2018, 15:27. FINDINGS: Liver: The liver demonstrates prominent size. The liver demonstrates generalized increased echogenicity. This decreases ultrasound sensitivity for detection of hepatic masses. Gallbladder: Mobile gallstones are seen. The largest measures up to 1.6 centimeters. The gallbladder wall is not thickened, measuring 3 mm or less. No specific pericholecystic fluid is seen. The sonographic Almaguer sign is regarded to be negative. Biliary ducts: Intrahepatic bile ducts are non-dilated. Extrahepatic bile duct caliber measures 3 mm. Normal is 6-7 mm or less in diameter, or 10 mm or less post-cholecystectomy. Pancreas: Visualized portions of the pancreas are sonographically normal. Spleen: Spleen is normal in size and homogeneous in echotexture. Kidneys: Kidneys are normal in size and echotexture. Right kidney measures 12.7 cm long; left kidney measures 12.9 cm long. No hydronephrosis or nephrolithiasis. No solid masses. Aorta: Visualized aorta is normal in caliber at less than 3 cm. Iliacs: Proximal common iliac arteries are normal in caliber at less than 2.5 cm. IVC: Intrahepatic inferior vena cava is patent. Miscellaneous: No free abdominal fluid. IMPRESSION: Mobile gallstones are seen, yet without additional sonographic signs of cholecystitis. Negative for biliary dilatation. Please correlate with physical examination findings, patient presentation, and laboratory values. Enlarged, fatty liver. Dictated by: Jonah Coleman M.D. on 01/11/2020 at 12:25 Approved by: Jonah Coleman M.D. on 01/11/2020 at 12:27
--- NOTE | 2020-01-11 09:54 | DI.RAD.S_ITS ---
PROCEDURE: XR CHEST 2V INDICATIONS: cough TECHNIQUE: 2 views of the chest were acquired. COMPARISON: [facility], CR, XR CHEST 1V, 11/25/2018, 9:33. FINDINGS: Surgical changes and devices: None. Low lung volumes with scattered subsegmental atelectasis/scarring. No pleural effusions or pneumothorax. Mediastinum: Mediastinal contours are normal. Heart size is normal. Bones and chest wall: No suspicious bony abnormalities. Soft tissues appear unremarkable. IMPRESSION: No acute consolidation Dictated by: Chandrakant Loera M.D. on 01/11/2020 at 10:57 Approved by: Chandrakant Loera M.D. on 01/11/2020 at 10:57
== END ==
PROVIDERS: PCP Nurse Practitioner; Referring Provider Nurse Practitioner; Visit Provider Nurse Practitioner
DX: R10.11 Right upper quadrant pain (principal); R14.0 Abdominal distension (gaseous); R19.7 Diarrhea, unspecified; M54.9 Dorsalgia, unspecified; R05 Cough; K80.20 Calculus of gallbladder without cholecystitis without obstruction; K76.0 Fatty (change of) liver, not elsewhere classified
CPT/HCPCS: 71046; 76700

== ENCOUNTER → 2020-01-29 08:33 | Outpatient (CLI) | payer OTHER, MEDICAID, SELFPAY ==
[2020-01-31 13:06] LABS: COVID19 Sendout Not Detected (Not Detect)
== END ==
PROVIDERS: PCP Nurse Practitioner; Visit Provider Nurse Practitioner
DX: Z11.59 Encounter for screening for other viral diseases (principal)
CPT/HCPCS: 87635

== ENCOUNTER 2020-02-01 08:55 | Day surgery (SDC) | payer OTHER, MEDICAID, SELFPAY ==
[2020-01-28 14:51] VITALS: BMI 30.9
[2020-02-01] VITALS (10 sets, daily range): BP systolic 136–158; BP diastolic 80–100; PULSE 70–80; RESP 16–24; TEMP 35.9–36.5; O2SAT 93–99; BMI 31.6
--- NOTE | 2020-02-01 | PATH_ITS ---
[facility] Accession Number: [id number] . 01 Material submitted: . gallbladder - GALLBLADDER . 01 Clinical history: . SDC . 01 Diagnosis: Gallbladder, Cholecystectomy: Cholelithiasis and chronic cholecystitis. Negative for dysplasia and malignancy. MRV 02/03/2020 1246 Local . 01 Electronically signed: . Soraida Choudhury MD, Pathologist NPI- [id number] . 01 Gross description: . The specimen is received in formalin, labeled gallbladder and consists of a 5.5 x 2.5 x 2.2 cm gallbladder with a 0.4 cm in diameter cystic duct. The serosa is corey-pink and smooth. Opening reveals green viscous bile with multiple green, bosselated choleliths and cholelith fragments, measuring 4.0 x 2.0 x 2.0 cm in aggregate, and ranging from 0.1 to 1.5 cm. The mucosa is corey-pink and velvety, and the wall thickness measures 0.1 cm. Dry Cleaner sections are submitted to include the en face cystic duct margin (blue), body and fundus. ([id number]) /[facility] 02/03/2020 0822 Local . 01 Pathologist provided ICD-10: K80.50 . 01 CPT . 422090 Performed at: [address], [place], [place] [id number] MD Ryan Min MD Phone: [phone]
[2020-02-01] MEDS: LACTATED RINGERS 1,000 ML 100 ML IV ×2 (09:42→12:00)
--- NOTE | 2020-02-01 10:18 | PM.PREOP ---
Pre-operative Note COVID-19 COVID-19 status: Negative Interval Note History & Physical reviewed/Exam performed by Physician: Yes Changes to H&P: No
[2020-02-01] MEDS: INSULIN ASPART 100 UNIT/ML 10ML VIAL SUBCUT (10:36)
[2020-02-01] MEDS: CEFAZOLIN 2 GM/100 ML FROZ.PIGGY IV (10:44)
--- NOTE | 2020-02-01 11:01 | SUR.OPER ---
Supine on padded OR bed, head on pillow, left arm padded and tucked at side, right arm on armboard, legs uncrossed, safety belt at thigh, foot board at end of bed.
[2020-02-01] MEDS: BUPIVACAINE 0.25% (PF) VIAL 30 ML INJ (11:12)
--- NOTE | 2020-02-01 11:36 | SUR.OPER ---
pt. glucose tested and resulted with 207. Anesthesiologist Wendy made aware.
--- NOTE | 2020-02-01 12:20 | P.OP_ITS ---
Operative Date/Time/Diagnoses Date of procedure: 02/01/20 Time of procedure: 12:20 Pre-op diagnosis: biliary colic Post-op diagnosis: same Procedure & Clinicians Procedure: laparoscopic cholecystectomy Same procedure as scheduled: Yes Indications: 44M with biliary colic here for elective cholecystectomy Surgeon: Rafy Dawkins Click Yes if Unassisted: Yes Anesthesia Type: General Operative Notes Findings: Chronic cholecystitis Specimen(s): other (gallbladder) Estimated Blood Loss (mL): 50 Procedure in detail: The patient was placed supine on the table and bilateral lower extremity compression devices were applied. Anesthesia was induced they were intubated with an endotracheal tube and received 2g of Ancef. A time-out was performed. They were prepped and draped in sterile fashion. An infraumbilical incision was made, the umbilical stalk was elevated and the fascia was sharply incised entering the abdomen atraumatically. A blunt tip 12mm balloon trocar was then inserted, pneumoperitoneum was established and inspection of the abdomen demonstrated no evidence of injury. They were placed head up and right side up and then a 11 mm port was placed high in the epigastrium and two 5mm in the right upper quadrant. The gallbladder was grasped by the fundus and retracted over the liver and retracted laterally by the infundibulum. There was chronic cholecystitis there was a very thick gallbladder wall with significant fat stranding. The duodenum was tethered up to the gallbladder and it was carefuly taken down using sharp dissection. Using electrocautery the lateral plane between the gallbladder and the liver was opened towards the fundus. The gallbladder was then retracted laterally and the medial plane was developed in the same manner. With the gallbladder mobilized the bottom of the cystic plate was visualized. The hepatocystic triangle was meticulosly skeletonized using blunt dissection of all fat and fibrous tissue from both the front and the back. Only two structures were then clearly seen entering the gallbladder the cystic duct and the cystic artery. With the critical view of safety fully established the cystic duct was clipped twice proximally and once distally using the Weck clip public information specialist under direct visualization and then sharply divided. The cystic artery was divided in the same fashion. The gallbladder was removed from the liver bed using electro cautery. The liver bed was then inspected for hemostasis and this was achieved using electrocautery and I placed one sheet of surgicel for extra security. The abdomen was irrigated with sterile saline and inspection was made that showed the clips in good position. The specimen was removed using Endo-Catch. The abdomen was desufflated. The umbilical fascia was closed with 0 Vicryl in a [id number] fashion under direct visualization. Skin incisions were irrigated and closed with 4-0 Monocryl. 30 ml of 0.25% bupivacaine was infiltrated into the subcutaneous tissue of the incisions. The wounds were sealed with Dermabond. Patient emerged from anesthesia was extubated and transferred to recovery in stable condition. The sponge and instrument count at the end of the operation was correct. Complications: none Post-operative Condition: stable Disposition: same day surgery
[2020-02-01] MEDS: fentaNYL 100 MCG/2 ML INJ IV ×4 (12:34→13:18)
[2020-02-01] MEDS: OXYCODONE IR 5 MG TABLET PO (13:03)
--- NOTE | 2020-02-01 13:32 | SUR.PHASEI ---
Report to ALIX Moore. Pt resting comfortably now stating pain tolerable at a 3 to 4.
== END 2020-02-01 14:20 | disposition home or self-care (01) ==
PROVIDERS: PCP Nurse Practitioner; Referring Provider Nurse Practitioner; Visit Provider Surgery
PROC: 0FT44ZZ Resection of Gallbladder, Percutaneous Endoscopic Approach (ICD-10-PCS; CPT 47562; principal; 2020-02-01 10:15)
DX: K80.10 Calculus of gallbladder with chronic cholecystitis without obstruction (principal); I10 Essential (primary) hypertension; G47.33 Obstructive sleep apnea (adult) (pediatric); E11.9 Type 2 diabetes mellitus without complications; Z79.84 Long term (current) use of oral hypoglycemic drugs; Z72.0 Tobacco use; T81.9XXA Unspecified complication of procedure, initial encounter; R11.2 Nausea with vomiting, unspecified
CPT/HCPCS: 47562; 36415; 80053; 83690; 85025; 85610; 85730; 93005; 93010; 99284; J0360; J0690; J2250; J2405; J2704; J3010

== ENCOUNTER 2020-02-01 22:02 | Emergency (ER) | payer OTHER, MEDICAID, SELFPAY ==
[2020-02-01 22:05] VITALS: BP 191/100; PULSE 86; RESP 20; TEMP 36.4; O2SAT 98; BMI 31.2
[2020-02-01 22:22] LABS: Add Manual Diff / Slide Review NO; Basophils Absolute Auto 100 /uL (0-100); Basophils Percent Auto 0.8 % (0-2); Eosinophils Absolute Auto 0 /uL (0-450); Eosinophils Percent Auto 0.2 % (2-4); Hematocrit 42.9 % (41-53); Hemoglobin 15.1 g/dL (13.5-17.5); Lymphocytes Absolute Auto 2100 /uL (1100-4500); Lymphocytes Percent Auto 12.1 % (25-40); Mean Corpuscular HGB Conc 35.2 % (30-36); Mean Corpuscular Hemoglobin 30.8 PG (26-34); Mean Corpuscular Volume 87.3 fL (80-100); Monocytes Absolute Auto 600 /uL (0-900); Monocytes Percent Auto 3.4 % (3-14); Neutrophils Absolute Auto 14600 /uL (1500-7000); Neutrophils Percent Auto 83.5 % (50-75); Platelet Count 266 X10^3/uL (150-400); Red Blood Cell Count 4.92 X10^6/uL (4.5-5.9); Red Cell Distribution Width 13.2 % (11.6-14.8); White Blood Cell Count 17.4 X10^3/uL (4.5-11.0)
[2020-02-01 22:25] LABS: INR 1.1 (0.9-1.3); Prothrombin Time 12.2 SECONDS (10.1-12.7)
[2020-02-01 22:28] LABS: PTT Partial Thromboplastin Tim 27 SECONDS (26.4-36.2)
[2020-02-01 22:30] LABS: Alanine Aminotransferase 93 IU/L (<50); Albumin 4.5 g/dL (3.5-5.0); Albumin Globulin Ratio 1.4 (1.0-2.8); Alkaline Phosphatase 78 U/L (38-126); Aspartate Aminotransferase 72 IU/L (17-59); BUN Creatinine Ratio 9.9 (6-22); Blood Urea Nitrogen 8 mg/dL (9-20); Carbon Dioxide 28 mmol/L (22-32); Chloride 100 mmol/L (98-107); Estimated Glomerular Filt Rate > 60.0 mL/min (>60); Globulin 3.3 g/dL (1.7-4.1); Glucose 232 mg/dL (70-100); HEMOLYSIS < 15 (0-50); Lipase 123 U/L (23-300); Potassium 3.8 mmol/L (3.4-5.1); Sodium 137 mmol/L (137-145); Total Protein 7.8 g/dL (6.3-8.2)
[2020-02-01] MEDS: SODIUM CHLORIDE 0.9% 1,000 ML 1000 ML IV (22:37)
[2020-02-01] MEDS: ONDANSETRON 4 MG/2 ML INJ IV (22:37)
--- NOTE | 2020-02-01 22:52 | ED.NAVMDI ---
HPI - Nausea/Vomiting/Diarrhea General Chief complaint: Nausea/Vomiting/Diarrhea Stated complaint: vomiting s/p procedure earlier today Time Seen by Provider: 02/01/20 22:28 Source: patient Mode of arrival: Ambulatory Limitations: no limitations History of Present Illness HPI Narrative: 44-year-old male who underwent a laparoscopic cholecystectomy earlier today at this hospital. Was discharged mid afternoon. He states that after he went home he had the expected abdominal tenderness after the surgery. Denies any fevers. Does have nausea medication at home. States that he started vomiting and after multiple episodes of vomiting and not being able to control this with the medications he was provided he came to the emergency department. Related Data Home Medications Medication Instructions Recorded Confirmed levothyroxine 175 mcg tablet 175 mcg PO DAILY 08/10/18 02/01/20 carvedilol 12.5 mg tablet 12.5 mg PO BID 01/17/20 02/01/20 Previous Rx's Medication Instructions Recorded azelastine 0.05 % eye drops 1 drop OPHTHALMIC (EYE) BID PRN #6 11/09/18 ml sumatriptan succinate 25 mg tablet See Rx Instructions PO .COMPLEX 11/26/19 #30 tab hydrocortisone 0.5 % topical 1 applictn TOP BID PRN #28.35 gram 12/20/19 ointment loratadine 10 mg capsule 10 mg PO DAILY #90 cap 12/20/19 losartan 100 mg tablet See Rx Instructions .ROUTE 12/20/19 .COMPLEX #90 tab losartan 25 mg tablet See Rx Instructions .ROUTE 12/20/19 .COMPLEX #90 tab metformin 500 mg tablet,extended 2,000 mg PO DAILY #360 tab 12/20/19 release 24 hr omega-3 fatty acids 1,000 mg 1,000 mg PO BID #180 cap 12/20/19 capsule bupropion HCl 150 mg tablet,12 hr 150 mg PO QAM #30 each 12/27/19 sustained-release diphenoxylate-atropine 2.5 1 tab PO BID PRN #20 tab 01/10/20 mg-0.025 mg tablet ondansetron HCl 4 mg tablet 4 mg PO Q8H PRN #30 tab 01/17/20 acetaminophen [Tylenol] 650 mg PO QID PRN #60 cap 02/01/20 oxycodone 5 mg PO Q6H PRN #30 tab 02/01/20 Allergies Allergy/AdvReac Type Severity Reaction Status Date / Time metoclopramide [From Reglan] Allergy Severe Irritable Verified 02/01/20 09:58 rock Allergy Mild hives Verified 02/01/20 09:58 Review of Systems Constitutional Constitutional: Denies fever(s) Cardiovascular Cardiovascular: Denies chest pain and Denies dyspnea Respiratory Respiratory: Denies dyspnea Gastrointestinal Gastrointestinal: Reports abdominal pain, Reports nausea and Reports vomiting Integumentary/Breasts Skin/Breast: Denies rash Neurologic Neurologic: Denies behavioral changes Psychiatric Psychiatric: Denies behavioral changes Hematologic/Lymphatic Hematologic/Lymphatic: Denies easy bleeding and Denies easy bruising Patient History Medical History Arthritis (Acute) Bloating (Acute) Cough (Acute) Depression (Acute) Depression with anxiety (Acute) Dermatitis (Chronic ~2011) Diarrhea (Acute) Dizziness (Inactive) Headache (Chronic ~1984) Hearing loss (Chronic) Hyperlipidemia (Acute) Hypertension (Chronic ~2006) Hypothyroidism (Chronic ~2010) Mid back pain on right side (Acute) Nausea (Acute) Non-insulin dependent type 2 diabetes mellitus (Chronic ~2013) SHIRLEY (obstructive sleep apnea) (Chronic ~2006) Other skilled nursing (current) drug therapy (Acute) RUQ pain (Acute) Seasonal allergies (Chronic) Seasonal allergies (Inactive) Wrist pain (Chronic ~2011) Surgical History Hx of vasectomy (Acute) Status post hernia repair (Resolved) Family History Mother Hypertension Gallstones Sister Diabetes mellitus Hypertension Social History marital status: household members: spouse and children occupational status: employed Smoking Status: Current every day smoker alcohol intake: current substance use type: marijuana Smoking Status: Current every day smoker tobacco type: cigarettes alcohol intake frequency: holidays/special occasions only Substance Use Type: marijuana Exam Initial Vital Signs Initial Vital Signs: Vital Signs Temperature 97.5 F L 02/01/20 22:05 Pulse Rate 86 02/01/20 22:05 Respiratory Rate 20 02/01/20 22:05 Blood Pressure 191/100 H 02/01/20 22:05 Pulse Oximetry 98 02/01/20 22:05 Const General: cooperative and comfortable Limitations: mental status not altered HENMT Head: normal to inspection and normocephalic Resp Effort & Inspection: normal respiratory effort Auscultation: clear to auscultation bilaterally Cardio Rate: regular rate Rhythm: regular rhythm GI Inspection: non-distended Palpation: soft and tender Skin Other: Surgical incisions covered with bandages consistent with stated history Extrem General: capillary refill normal Psych Appearance: grossly normal and well kempt Course Orders Ordered: ED Orders 02/01/20 22:10 Complete Blood Count AUTO DIFF Stat Comprehensive Metabolic Panel Stat Lipase Stat Partial Thromboplastin Time Stat Prothrombin Time INR Stat 02/01/20 22:14 EKG-12 Lead Stat Discontinued Medications Sodium Chloride (Normal Saline 0.9%) 1,000 mls @ 1,000 mls/hr IV BOLUS ONE Stop: 02/01/20 23:32 Last Infusion: 02/01/20 23:46 Dose: 0 mls/hr Documented by: Admin: 02/01/20 22:37 Dose: 1,000 mls/hr Documented by: JOSÉ Ondansetron HCl (Zofran) 4 mg IV NOW ONE Stop: 02/01/20 22:34 Last Admin: 02/01/20 22:37 Dose: 4 mg Documented by: JOSÉ Vital Signs Vital signs: Vital Signs - 8 hr 02/01/20 22:05 02/01/20 23:56 Temperature 97.5 F L Pulse Rate 86 74 Respiratory Rate 20 22 Blood Pressure 191/100 H 181/92 H Pulse Oximetry 98 99 MDM - Nausea/Vomiting/Diarrhea Lab Data Attestation: I reviewed the patient's lab results. Result diagrams: 02/01/20 22:10 02/01/20 22:10 Labs: Lab Results 02/01/20 02/01/20 02/01/20 Range/Units 22:10 22:10 22:10 WBC 17.4 H (4.5-11.0) X10^3/uL RBC 4.92 (4.5-5.9) X10^6/uL Hgb 15.1 (13.5-17.5) g/dL Hct 42.9 (41-53) % MCV 87.3 (80-100) fL MCH 30.8 (26-34) PG MCHC 35.2 (30-36) % RDW 13.2 (11.6-14.8) % Plt Count 266 (150-400) X10^3/uL Neut % (Auto) 83.5 H (50-75) % Lymph % (Auto) 12.1 L (25-40) % [place] % (Auto) 3.4 (3-14) % Eos % (Auto) 0.2 L (2-4) % Baso % (Auto) 0.8 (0-2) % Neut # (Auto) 27071 H (3208-4831) /uL Lymph # (Auto) 2100 (6961-2075) /uL [place] # (Auto) 600 (0-900) /uL Eos # (Auto) 0 (0-450) /uL Baso # (Auto) 100 (0-100) /uL PT 12.2 (10.1-12.7) SECONDS INR 1.1 (0.9-1.3) APTT 27 (26.4-36.2) SECONDS Sodium 137 (137-145) mmol/L Potassium 3.8 (3.4-5.1) mmol/L Chloride 100 (98-107) mmol/L Carbon Dioxide 28 (22-32) mmol/L BUN 8 L (9-20) mg/dL Creatinine 0.81 (0.66-1.25) mg/dL Estimated GFR > 60.0 (>60) mL/min BUN/Creatinine Ratio 9.9 (6-22) Glucose 232 H (70-100) mg/dL Calcium 9.0 (8.4-10.2) mg/dL Total Bilirubin 1.0 (0.2-1.3) mg/dL AST 72 H (17-59) IU/L ALT 93 H (<50) IU/L Alkaline Phosphatase 78 (38-126) U/L Total Protein 7.8 (6.3-8.2) g/dL Albumin 4.5 (3.5-5.0) g/dL Globulin 3.3 (1.7-4.1) g/dL Albumin/Globulin Ratio 1.4 (1.0-2.8) Lipase 123 (23-300) U/L [facility] Narrative Medical decision making narrative: Patient states he feels better after the Zofran and fluids. Surgical incisions appear well. Does have a leukocytosis however also just had surgery today. I feel we can hold on further workup for now. Patient does have Zofran at home. He is instructed to contact his surgeon tomorrow. He was given return precautions. Expressed understanding and agreement. Discharge Plan Departure Patient Disposition: Home Clinical Impression: Vomiting Qualifiers: Vomiting type: unspecified Vomiting Intractability: unspecified Nausea presence: unspecified Qualified Code(s): R11.10 - Vomiting, unspecified Post-operative complication Qualifiers: Surgical complication system/body Area: [id number] Discharge Date/Time: 02/01/20 23:56 Instructions: DI for Vomiting -- Adult Activity Restrictions/Additional Instructions: Recommend you follow all of the postoperative instructions given to you by Dr. Dawkins. Use the Zofran as needed. Be sure to increase your fluid intake by drinking small amounts of fluid over long periods of time. Return to the emergency department for any new or worsening symptoms Prescriptions: No Action sumatriptan succinate [Imitrex] 25 mg tablet See Rx Instructions PO .COMPLEX Qty: 30 RF: 0 levothyroxine [Synthroid] 175 mcg tablet 175 mcg PO DAILY RF: 0 azelastine 0.05 % drops 1 drop ophthalmic (eye) BID PRN (Reason: Seasonal allergies) Qty: 6 RF: 5 losartan 100 mg tablet See Rx Instructions .ROUTE .COMPLEX Qty: 90 RF: 3 losartan 25 mg tablet See Rx Instructions .ROUTE .COMPLEX Qty: 90 RF: 3 loratadine 10 mg capsule 10 mg PO DAILY Qty: 90 RF: 3 omega-3 fatty acids [Fish Oil Concentrate] 1,000 mg capsule 1,000 mg PO BID Qty: 180 RF: 3 metformin 500 mg tablet extended release 24 hr 2,000 mg PO DAILY Qty: 360 RF: 3 hydrocortisone 0.5 % ointment 1 applictn TOP BID PRN (Reason: skin irritation) Qty: 28.35 RF: 2 bupropion HCl 150 mg tablet sustained-release 12 hr 150 mg PO QAM Qty: 30 RF: 1 diphenoxylate-atropine 2.5-0.025 mg tablet 1 tab PO BID PRN (Reason: diarrhea) Qty: 20 RF: 0 ondansetron HCl 4 mg tablet 4 mg PO Q8H PRN (Reason: nausea and vomiting) Qty: 30 RF: 0 carvedilol 12.5 mg tablet 12.5 mg PO BID RF: 0 oxycodone 5 mg tablet 5 mg PO Q6H PRN (Reason: pain) Qty: 30 RF: 0 acetaminophen [Tylenol] 325 mg capsule 650 mg PO QID PRN (Reason: pain) Qty: 60 RF: 0 Referrals: Veena Miles ARNP [Primary Care Provider] -
[2020-02-01 23:56] VITALS: BP 181/92; PULSE 74; RESP 22; O2SAT 99
== END 2020-02-01 23:56 | disposition home or self-care (01) ==
PROVIDERS: Emergency Provider Emergency Medicine; PCP Nurse Practitioner
DX: T81.9XXA Unspecified complication of procedure, initial encounter (principal); R11.2 Nausea with vomiting, unspecified
CPT/HCPCS: 36415; 80053; 83690; 85025; 85610; 85730; 93005; J2405

== ENCOUNTER → 2020-03-01 10:42 | Outpatient (CLI) | payer OTHER, MEDICAID, SELFPAY ==
[2020-03-01 12:35] LABS: Add Manual Diff / Slide Review NO; Basophils Absolute Auto 100 /uL (0-100); Basophils Percent Auto 0.8 % (0-2); Eosinophils Absolute Auto 200 /uL (0-450); Eosinophils Percent Auto 2.6 % (2-4); Hematocrit 45.5 % (41-53); Hemoglobin 15.8 g/dL (13.5-17.5); Lymphocytes Absolute Auto 2600 /uL (1100-4500); Lymphocytes Percent Auto 27.8 % (25-40); Mean Corpuscular HGB Conc 34.8 % (30-36); Mean Corpuscular Hemoglobin 30.5 PG (26-34); Mean Corpuscular Volume 87.8 fL (80-100); Monocytes Absolute Auto 600 /uL (0-900); Monocytes Percent Auto 6.4 % (3-14); Neutrophils Absolute Auto 5800 /uL (1500-7000); Neutrophils Percent Auto 62.4 % (50-75); Platelet Count 243 X10^3/uL (150-400); Red Blood Cell Count 5.19 X10^6/uL (4.5-5.9); Red Cell Distribution Width 13.1 % (11.6-14.8); White Blood Cell Count 9.3 X10^3/uL (4.5-11.0)
[2020-03-01 13:05] LABS: Alanine Aminotransferase 82 IU/L (<50); Albumin 4.4 g/dL (3.5-5.0); Albumin Globulin Ratio 1.5 (1.0-2.8); Alkaline Phosphatase 103 U/L (38-126); Aspartate Aminotransferase 51 IU/L (17-59); BUN Creatinine Ratio 12.1 (6-22); Bilirubin Total 0.6 mg/dL (0.2-1.3); Blood Urea Nitrogen 8 mg/dL (9-20); Calcium 9.3 mg/dL (8.4-10.2); Carbon Dioxide 29 mmol/L (22-32); Chloride 101 mmol/L (98-107); Estimated Glomerular Filt Rate > 60.0 mL/min (>60); Glucose 293 mg/dL (70-100); HEMOLYSIS < 15 (0-50); Potassium 3.5 mmol/L (3.4-5.1); Sodium 137 mmol/L (137-145); Total Protein 7.4 g/dL (6.3-8.2)
== END ==
PROVIDERS: PCP Nurse Practitioner; Referring Provider Surgery; Visit Provider Surgery
DX: R10.9 Unspecified abdominal pain (principal)
CPT/HCPCS: 36415; 80053; 85025

== ENCOUNTER 2020-05-15 12:53 | Emergency (ER) | payer OTHER, MEDICAID, SELFPAY ==
[2020-05-15] VITALS (10 sets, daily range): BP systolic 141–171; BP diastolic 90–97; PULSE 74–83; RESP 10–21; TEMP 36.6; O2SAT 98–100; BMI 31.2
--- NOTE | 2020-05-15 13:28 | DI.RAD.S_ITS ---
PROCEDURE: XR CHEST 1V INDICATIONS: chest pain TECHNIQUE: One view of the chest was acquired. COMPARISON: [facility], CR, XR CHEST 2V, 01/11/2020, 8:52. [facility], CR, XR CHEST 1V, 11/25/2018, 9:33. FINDINGS: Surgical changes and devices: None. Lungs and pleura: Lungs are clear. No pleural effusions or pneumothorax. Mediastinum: Mediastinal contours appear normal. Heart size is normal. Bones and chest wall: No suspicious bony lesions. Overlying soft tissues appear unremarkable. IMPRESSION: Normal for age, source of current chest pain symptoms is not seen. Dictated by: Jose Andres M.D. on 05/15/2020 at 14:10 Approved by: Jose Andres M.D. on 05/15/2020 at 14:11
[2020-05-15 13:50] LABS: Add Manual Diff / Slide Review NO; Basophils Absolute Auto 100 /uL (0-100); Eosinophils Absolute Auto 200 /uL (0-450); Eosinophils Percent Auto 2.6 % (2-4); Hematocrit 45.1 % (41-53); Hemoglobin 15.7 g/dL (13.5-17.5); Lymphocytes Absolute Auto 2600 /uL (1100-4500); Lymphocytes Percent Auto 29.7 % (25-40); Mean Corpuscular HGB Conc 34.9 % (30-36); Mean Corpuscular Hemoglobin 30.7 PG (26-34); Mean Corpuscular Volume 88.1 fL (80-100); Monocytes Absolute Auto 500 /uL (0-900); Neutrophils Absolute Auto 5200 /uL (1500-7000); Neutrophils Percent Auto 60.7 % (50-75); Platelet Count 219 X10^3/uL (150-400); Red Blood Cell Count 5.12 X10^6/uL (4.5-5.9); Red Cell Distribution Width 13.3 % (11.6-14.8); White Blood Cell Count 8.6 X10^3/uL (4.5-11.0)
--- NOTE | 2020-05-15 13:55 | ED.DIZZY ---
HPI - Dizziness General Chief Complaint: Dizziness Stated Complaint: High Blood Pressure, Dizzy, Light Headed Time Seen by Provider: 05/15/20 13:37 Source: patient Mode of arrival: Ambulatory Limitations: no limitations History of Present Illness HPI Narrative: 44-year-old male smoker with history of high blood pressure presents with his significant other and a chief complaint of an episode lasting upwards of 1 week of dizziness and lightheadedness. He states it is worse when he sits up or stands up and seems to improve when he lays flat. He denies any trauma. He has no blurred vision, trouble with speech nor neck or back pain. He does not take blood thinners. He has had no fever, chills or sore throat. He denies any chest pain or shortness of breath. He denies any dizziness, weakness or lightheadedness. He has been having trouble with his blood pressures getting as high as the 180s and states his PCP recently altered his medications slightly. MD complaint: dizziness and lightheadedness Timing: gradual onset Description: lightheadedness History of similar episodes: Yes History of trauma: No Severity: mild Relieving factors: rest Exacerbating factors: position Associated symptoms: denies other symptoms Related Data Home Medications Medication Instructions Recorded Confirmed levothyroxine 175 mcg tablet 175 mcg PO DAILY 08/10/18 05/05/20 carvedilol 12.5 mg tablet 12.5 mg PO BID 01/17/20 05/05/20 Previous Rx's Medication Instructions Recorded azelastine 0.05 % eye drops 1 drop OPHTHALMIC (EYE) BID PRN #6 11/09/18 ml sumatriptan succinate 25 mg tablet See Rx Instructions PO .COMPLEX 11/26/19 #30 tab hydrocortisone 0.5 % topical 1 applictn TOP BID PRN #28.35 gram 12/20/19 ointment loratadine 10 mg capsule 10 mg PO DAILY #90 cap 12/20/19 metformin 500 mg tablet,extended 2,000 mg PO DAILY #360 tab 12/20/19 release 24 hr omega-3 fatty acids 1,000 mg 1,000 mg PO BID #180 cap 12/20/19 capsule bupropion HCl 150 mg tablet,12 hr 150 mg PO QAM #30 each 12/27/19 sustained-release diphenoxylate-atropine 2.5 1 tab PO BID PRN #20 tab 08/24/20 mg-0.025 mg tablet ondansetron HCl 4 mg tablet 4 mg PO Q8H PRN #30 tab 01/17/20 acetaminophen [Tylenol] 650 mg PO QID PRN #60 cap 02/01/20 amlodipine 5 mg tablet 10 mg PO DAILY #180 tab 04/25/20 terazosin 5 mg capsule 5 mg PO BEDTIME #30 cap 04/25/20 glipizide 5 mg tablet, extended 5 mg PO DAILY #30 tab 05/05/20 release 24 hr meclizine 25 mg PO BID-TID PRN #14 tab 05/15/20 Allergies Allergy/AdvReac Type Severity Reaction Status Date / Time metoclopramide [From Reglan] Allergy Severe Irritable Verified 05/15/20 13:06 rock Allergy Mild hives Verified 05/15/20 13:06 lisinopril AdvReac Intermediate Cough Verified 05/15/20 13:06 glyburide AdvReac Mild diarrhea Verified 05/15/20 13:06 and stomach aches losartan AdvReac dizziness, Verified 05/15/20 13:06 queasiness, presyncope Review of Systems Constitutional Constitutional: Denies chills, Denies fatigue, Denies fever(s), Denies frequent falls, Denies lethargy and Denies weakness Eyes Eyes: Denies change in vision, Denies eye discharge, Denies irritation and Denies loss of vision ENT Ears, Nose, Mouth, and Throat: Denies change in voice, Denies dizziness, Denies neck pain, Denies sore throat and Denies throat swelling Cardiovascular Cardiovascular: Denies chest pain, Denies irregular heart rhythm, Denies lightheadedness, Denies palpitations, Denies dyspnea, Denies dyspnea on exertion and Denies orthopnea Respiratory Respiratory: Denies cough, Denies dyspnea, Denies dyspnea on exertion and Denies wheezing Gastrointestinal Gastrointestinal: Denies abdominal pain, Denies change in bowel habits, Denies diarrhea, Denies nausea and Denies vomiting Musculoskeletal Musculoskeletal: Denies neck pain and Denies numbness Integumentary/Breasts Skin/Breast: Denies pruritus, Denies erythema, Denies rash and Denies wounds Neurologic Neurologic: Denies behavioral changes, Denies confusion, Denies dizziness, Denies frequent falls, Denies loss of vision, Denies numbness and Denies weakness Psychiatric Psychiatric: Denies anxiety, Denies behavioral changes, Denies confusion, Denies depression, Denies homicidal ideation and Denies suicidal ideation Endocrine Endocrine: Denies fatigue, Denies flushing and Denies palpitations Hematologic/Lymphatic Hematologic/Lymphatic: Denies easy bruising Allergic/Immunologic Allergic/Immunologic: Denies urticaria, Denies throat swelling and Denies wheezing Patient History Medical History Abdominal pain Arthritis Biliary colic Bloating Cough Depression Depression with anxiety Dermatitis (~2011) Diarrhea Dizziness Headache (~1984) Hearing loss Hyperlipidemia Hypertension (~2006) Hypothyroidism (~2010) Mid back pain on right side Nausea Non-insulin dependent type 2 diabetes mellitus (~2013) SHIRLEY (obstructive sleep apnea) (~2006) Other senior care (current) drug therapy RUQ pain Seasonal allergies Seasonal allergies Wrist pain (~2011) Surgical History Hx of vasectomy Status post hernia repair Family History Mother Hypertension Gallstones Sister Diabetes mellitus Hypertension Social History marital status: household members: spouse and children occupational status: employed Smoking Status: Current every day smoker alcohol intake: current substance use type: marijuana Smoking Status: Current every day smoker tobacco type: cigarettes alcohol intake frequency: holidays/special occasions only Substance Use Type: marijuana Exam Narrative Exam Narrative: GENERAL: [44] year old patient appears stated age. Well-nourished, well-developed patient, in mild distress. HEAD: Atraumatic. Normocephalic. EYES: Pupils equal round and reactive. Extraocular motions intact. No scleral icterus. No injection or drainage. ENT: Nose without bleeding, purulent drainage. Throat without erythema, tonsillar hypertrophy or exudate. Airway patent. NECK: Trachea midline. Non tender CARDIOVASCULAR: Regular rate and rhythm without murmurs, gallops, or rubs. RESPIRATORY: Clear to auscultation. Breath sounds equal bilaterally. No wheezes, rales, or rhonchi. GASTROINTESTINAL: Abdomen soft, non-tender, nondistended. EXTREMITIES: No edema or joint tenderness. BACK: Nontender without deformity or crepitance. No flank tenderness. NEURO: AOx3. SKIN: No rash or erythema of visible areas Initial Vital Signs Initial Vital Signs: Vital Signs Temperature 97.8 F 05/15/20 13:03 Pulse Rate 83 05/15/20 13:03 Respiratory Rate 18 05/15/20 13:03 Blood Pressure 167/90 H 05/15/20 13:03 Pulse Oximetry 98 05/15/20 13:03 Course Orders Ordered: Discontinued Medications Sodium Chloride (Normal Saline 0.9%) 1,000 mls @ 1,000 mls/hr IV BOLUS ONE Stop: 05/15/20 15:11 Last Infusion: 05/15/20 15:40 Dose: 0 mls/hr Documented by: Admin: 05/15/20 14:20 Dose: 1,000 mls/hr Documented by: SHIN Vital Signs Vital signs: Vital Signs - 8 hr 05/15/20 13:03 05/15/20 13:33 05/15/20 14:00 Temperature 97.8 F Pulse Rate 83 81 78 Respiratory Rate 18 15 13 Blood Pressure 167/90 H 157/95 H Pulse Oximetry 98 100 98 05/15/20 14:30 Temperature Pulse Rate 76 Respiratory Rate 21 Blood Pressure 148/91 H Pulse Oximetry 98 MDM - Dizziness Lab Data Result diagrams: 05/15/20 13:42 05/15/20 13:42 Labs: Lab Results 05/15/20 05/15/20 05/15/20 Range/Units 13:42 13:42 13:42 WBC 8.6 (4.5-11.0) X10^3/uL RBC 5.12 (4.5-5.9) X10^6/uL Hgb 15.7 (13.5-17.5) g/dL Hct 45.1 (41-53) % MCV 88.1 (80-100) fL MCH 30.7 (26-34) PG MCHC 34.9 (30-36) % RDW 13.3 (11.6-14.8) % Plt Count 219 (150-400) X10^3/uL Neut % (Auto) 60.7 (50-75) % Lymph % (Auto) 29.7 (25-40) % [place] % (Auto) 6.0 (3-14) % Eos % (Auto) 2.6 (2-4) % Baso % (Auto) 1.0 (0-2) % Neut # (Auto) 5200 (0468-5588) /uL Lymph # (Auto) 2600 (6835-9926) /uL [place] # (Auto) 500 (0-900) /uL Eos # (Auto) 200 (0-450) /uL Baso # (Auto) 100 (0-100) /uL PT 10.7 (10.1-12.7) SECONDS INR 0.9 (0.9-1.3) APTT 29 (26.4-36.2) SECONDS Sodium 136 L (137-145) mmol/L Potassium 4.0 (3.4-5.1) mmol/L Chloride 101 (98-107) mmol/L Carbon Dioxide 33 H (22-32) mmol/L BUN 8 L (9-20) mg/dL Creatinine 0.74 (0.66-1.25) mg/dL Estimated GFR > 60.0 (>60) mL/min BUN/Creatinine Ratio 10.8 (6-22) Glucose 375 H (70-100) mg/dL Calcium 9.5 (8.4-10.2) mg/dL Total Bilirubin 0.3 (0.2-1.3) mg/dL AST 28 (17-59) IU/L ALT 60 H (<50) IU/L Alkaline Phosphatase 96 (38-126) U/L Total Creatine Kinase 34 L (55-170) U/L CK-MB (CK-2) TNP CK-MB (CK-2) Rel Index TNP Troponin I < 0.012 (0.01-0.034) ng/mL Total Protein 7.4 (6.3-8.2) g/dL Albumin 4.4 (3.5-5.0) g/dL Globulin 3.0 (1.7-4.1) g/dL Albumin/Globulin Ratio 1.5 (1.0-2.8) Lipase 127 (23-300) U/L [facility] Narrative Medical decision making narrative: Multiple etiologies for patient's symptoms considered including: [orthostatic hypotension evidenced by orthostatic vitals and his report. BPPV considered vs. stroke vs. other.] Patient's symptoms improved over duration of stay with above-stated therapies. Findings and discharge diagnosis discussed with patient/family followed by verbalization of understanding Return precautions discussed with patient/family whom verbalize understanding. Discharge Plan Departure Patient Disposition: Home Clinical Impression: Orthostatic hypotension Instructions: DI for Dizziness-Nonvertigo Activity Restrictions/Additional Instructions: *You have been diagnosed with [dizziness, likely a small component of orthostatic hypotension] *What to do: *Take medications as directed *Follow up with your primary care provider in 2-3 days, call for an appointment. Let them know you were seen in the Emergency Department and that we ask that you be seen in follow up *Return to ER if you should have any new, worsening or concerning symptoms Prescriptions: New meclizine 25 mg tablet 25 mg PO BID-TID PRN (Reason: dizziness) Qty: 14 RF: 0 No Action sumatriptan succinate [Imitrex] 25 mg tablet See Rx Instructions PO .COMPLEX Qty: 30 RF: 0 levothyroxine [Synthroid] 175 mcg tablet 175 mcg PO DAILY RF: 0 azelastine 0.05 % drops 1 drop ophthalmic (eye) BID PRN (Reason: Seasonal allergies) Qty: 6 RF: 5 loratadine 10 mg capsule 10 mg PO DAILY Qty: 90 RF: 3 omega-3 fatty acids [Fish Oil Concentrate] 1,000 mg capsule 1,000 mg PO BID Qty: 180 RF: 3 metformin 500 mg tablet extended release 24 hr 2,000 mg PO DAILY Qty: 360 RF: 3 hydrocortisone 0.5 % ointment 1 applictn TOP BID PRN (Reason: skin irritation) Qty: 28.35 RF: 2 terazosin 5 mg capsule 5 mg PO BEDTIME Qty: 30 RF: 1 amlodipine 5 mg tablet 10 mg PO DAILY Qty: 180 RF: 3 glipizide 5 mg tablet extended release 24hr 5 mg PO DAILY Qty: 30 RF: 1 bupropion HCl 150 mg tablet sustained-release 12 hr 150 mg PO QAM Qty: 30 RF: 1 diphenoxylate-atropine 2.5-0.025 mg tablet 1 tab PO BID PRN (Reason: diarrhea) Qty: 20 RF: 0 ondansetron HCl 4 mg tablet 4 mg PO Q8H PRN (Reason: nausea and vomiting) Qty: 30 RF: 0 carvedilol 12.5 mg tablet 12.5 mg PO BID RF: 0 acetaminophen [Tylenol] 325 mg capsule 650 mg PO QID PRN (Reason: pain) Qty: 60 RF: 0 Referrals: Veena Miles ARNP [Primary Care Provider] -
[2020-05-15 13:59] LABS: INR 0.9 (0.9-1.3); Prothrombin Time 10.7 SECONDS (10.1-12.7)
[2020-05-15 14:00] LABS: PTT Partial Thromboplastin Tim 29 SECONDS (26.4-36.2)
[2020-05-15 14:03] LABS: Alanine Aminotransferase 60 IU/L (<50); Albumin 4.4 g/dL (3.5-5.0); Albumin Globulin Ratio 1.5 (1.0-2.8); Alkaline Phosphatase 96 U/L (38-126); Aspartate Aminotransferase 28 IU/L (17-59); BUN Creatinine Ratio 10.8 (6-22); Bilirubin Total 0.3 mg/dL (0.2-1.3); Blood Urea Nitrogen 8 mg/dL (9-20); Calcium 9.5 mg/dL (8.4-10.2); Carbon Dioxide 33 mmol/L (22-32); Chloride 101 mmol/L (98-107); Creatine Kinase 34 U/L (55-170); Estimated Glomerular Filt Rate > 60.0 mL/min (>60); Glucose 375 mg/dL (70-100); HEMOLYSIS < 15 (0-50); Lipase 127 U/L (23-300); Sodium 136 mmol/L (137-145); Total Protein 7.4 g/dL (6.3-8.2)
[2020-05-15 14:14] LABS: Troponin I < 0.012 ng/mL (0.01-0.034)
[2020-05-15] MEDS: SODIUM CHLORIDE 0.9% 1,000 ML 1000 ML IV (14:20)
== END 2020-05-15 15:45 | disposition home or self-care (01) ==
PROVIDERS: Emergency Provider Emergency Medicine; PCP Nurse Practitioner
DX: I95.1 Orthostatic hypotension (principal); R42 Dizziness and giddiness
CPT/HCPCS: 36415; 71045; 80053; 82550; 83690; 84484; 85025; 85610; 85730; 93005; 96360; 99283; 99284

== ENCOUNTER → 2020-08-07 09:02 | Outpatient (CLI) | payer OTHER, MEDICAID, SELFPAY ==
[2020-08-07 10:24] LABS: Creatinine Urine Random 168.4 mg/dL
[2020-08-07 10:26] LABS: Hemoglobin A1C% w Est Avg Glu 9.1 % (4.0-6.0)
[2020-08-07 10:29] LABS: Microalbumi Creatinin Ratio Ur 17.8 ug/mg CR (<30)
[2020-08-07 10:44] LABS: Alanine Aminotransferase 42 IU/L (<50); Albumin 4.4 g/dL (3.5-5.0); Albumin Globulin Ratio 1.5 (1.0-2.8); Alkaline Phosphatase 86 U/L (38-126); Aspartate Aminotransferase 28 IU/L (17-59); BUN Creatinine Ratio 14.7 (6-22); Bilirubin Total 0.5 mg/dL (0.2-1.3); Blood Urea Nitrogen 11 mg/dL (9-20); Carbon Dioxide 29 mmol/L (22-32); Chloride 101 mmol/L (98-107); Cholesterol 170 mg/dL (140-199); Estimated Glomerular Filt Rate > 60.0 mL/min (>60); Glucose 266 mg/dL (70-100); HDL Cholesterol 34 mg/dL (40-60); HEMOLYSIS < 15 (0-50); LDL Cholesterol Calculated 80 mg/dL (<100); Sodium 138 mmol/L (137-145); Total Protein 7.4 g/dL (6.3-8.2); Triglycerides 280 mg/dL (35-150)
[2020-08-07 11:11] LABS: Thyroid Stimulating Hormone 3.41 uIU/mL (0.47-4.68)
== END ==
PROVIDERS: PCP Nurse Practitioner; Referring Provider Nurse Practitioner; Visit Provider Nurse Practitioner
DX: E03.9 Hypothyroidism, unspecified (principal); E11.9 Type 2 diabetes mellitus without complications; I10 Essential (primary) hypertension
CPT/HCPCS: 36415; 80053; 80061; 82043; 82570; 83036; 84443

== ENCOUNTER → 2020-09-05 07:30 | Outpatient (CLI) | payer OTHER, MEDICAID, SELFPAY ==
[2020-09-20 10:48] LABS: Aldosterone/Renin Activity Rat >22.8 (0.0-30.0); Plama Renin, LC/MS/MS <0.167 ng/mL/hr (0.167-5.380)
== END ==
PROVIDERS: PCP Nurse Practitioner; Referring Provider Nurse Practitioner; Visit Provider Nurse Practitioner
DX: I10 Essential (primary) hypertension (principal); R11.0 Nausea; R42 Dizziness and giddiness
CPT/HCPCS: 36415; 82088; 84244

== ENCOUNTER → 2020-10-02 09:52 | Outpatient (CLI) | payer OTHER, MEDICAID, SELFPAY ==
[2020-10-02 11:50] LABS: Creatinine Urine Random 77.7 mg/dL; Sodium Urine Random 97 mmol/L (30-90)
[2020-10-02 19:21] LABS: Collection Time Urine 24 Hours; Creatinine 24 Hour Urine 2020 mg/day (1000-2000); Sodium 24 Hour Urine 252 mmol/day (40-220); Total Volume Urine 2600 mL
== END ==
PROVIDERS: PCP Nurse Practitioner; Referring Provider Nurse Practitioner; Visit Provider Nurse Practitioner
DX: R79.89 Other specified abnormal findings of blood chemistry (principal)
CPT/HCPCS: 82088; 82570; 84300

== ENCOUNTER → 2020-10-30 09:08 | Outpatient (CLI) | payer OTHER, MEDICAID, SELFPAY ==
[2020-10-30 10:03] LABS: Hemoglobin A1C% w Est Avg Glu 8.2 % (4.0-6.0)
[2020-10-30 10:42] LABS: Alanine Aminotransferase 61 IU/L (<50); Albumin 4.6 g/dL (3.5-5.0); Albumin Globulin Ratio 1.6 (1.0-2.8); Alkaline Phosphatase 84 U/L (38-126); Aspartate Aminotransferase 35 IU/L (17-59); BUN Creatinine Ratio 11.8 (6-22); Bilirubin Total 0.5 mg/dL (0.2-1.3); Blood Urea Nitrogen 10 mg/dL (9-20); Calcium 10.1 mg/dL (8.4-10.2); Carbon Dioxide 29 mmol/L (22-32); Chloride 98 mmol/L (98-107); Cholesterol 162 mg/dL (140-199); Estimated Glomerular Filt Rate > 60.0 mL/min (>60); Globulin 2.9 g/dL (1.7-4.1); Glucose 190 mg/dL (70-100); HDL Cholesterol 31 mg/dL (40-60); HEMOLYSIS < 15 (0-50); LDL Cholesterol Calculated 66 mg/dL (<100); Potassium 3.4 mmol/L (3.4-5.1); Sodium 138 mmol/L (137-145); Total Protein 7.5 g/dL (6.3-8.2); Triglycerides 327 mg/dL (35-150)
== END ==
PROVIDERS: PCP Nurse Practitioner; Referring Provider Nurse Practitioner; Visit Provider Nurse Practitioner
DX: E11.9 Type 2 diabetes mellitus without complications (principal); E78.2 Mixed hyperlipidemia; I10 Essential (primary) hypertension; Z79.899 Other long term (current) drug therapy
CPT/HCPCS: 36415; 80053; 80061; 83036

== ENCOUNTER → 2020-12-05 07:53 | Outpatient (CLI) | payer OTHER, MEDICAID, SELFPAY ==
--- NOTE | 2020-12-05 07:56 | DI.NM.S_ITS ---
PROCEDURE: NM GASTRIC EMPTYING STUDY RADIOPHARMACEUTICAL: 1.0 mCi Tc-99m sulfur colloid in an egg sandwich. INDICATIONS: diabetes, nausea, vomiting, bloating TECHNIQUE: A Tc-99m labeled sulfur colloid labeled egg sandwich or oatmeal was served to the patient. Anterior and posterior planar images of the abdomen were obtained at 0 minutes and 30 minutes, then at hourly intervals up to 4 hours. The patient was upright and ambulating during the interval. COMPARISON: None. FINDINGS: The stomach has normal size, morphology, and position. There is normal emptying of solid gastric contents from the stomach by visual inspection. No gastroesophageal reflux is visualized. The percentage of tracer retained at specific time points are as follows: Time point Percent gastric retention Normal range 30 minutes 94% 70% or more 1 hour 76% 30% to 90% 2 hours 42% 60% or less 3 hours 35% 30% or less IMPRESSION: No significant abnormal gastric retention of radioisotope. At the 3 hour time of assessment the% gastric retention was 35% and the normal range is 30% or less. This is a threshold finding of possible clinical significance, however. Dictated by: Jose Andres M.D. on 12/05/2020 at 12:44 Approved by: Jose Andres M.D. on 12/05/2020 at 12:48
== END ==
PROVIDERS: PCP Nurse Practitioner; Referring Provider Nurse Practitioner; Visit Provider Nurse Practitioner
DX: R14.0 Abdominal distension (gaseous) (principal); E11.9 Type 2 diabetes mellitus without complications; R11.2 Nausea with vomiting, unspecified
CPT/HCPCS: 78264; A9541

== ENCOUNTER → 2021-02-20 10:50 | Outpatient (CLI) | payer OTHER, MEDICAID, SELFPAY ==
[2021-02-20 12:40] LABS: Alanine Aminotransferase 73 IU/L (<50); Albumin 4.7 g/dL (3.5-5.0); Albumin Globulin Ratio 1.6 (1.0-2.8); Alkaline Phosphatase 80 U/L (38-126); Aspartate Aminotransferase 34 IU/L (17-59); BUN Creatinine Ratio 10.3 (6-22); Bilirubin Total 0.5 mg/dL (0.2-1.3); Blood Urea Nitrogen 8 mg/dL (9-20); Calcium 9.4 mg/dL (8.4-10.2); Carbon Dioxide 32 mmol/L (22-32); Chloride 98 mmol/L (98-107); Cholesterol 191 mg/dL (140-199); Estimated Glomerular Filt Rate > 60.0 mL/min (>60); Globulin 2.9 g/dL (1.7-4.1); Glucose 233 mg/dL (70-100); HDL Cholesterol 40 mg/dL (40-60); HEMOLYSIS < 15 (0-50); LDL Cholesterol Calculated 104 mg/dL (<100); Potassium 4.1 mmol/L (3.4-5.1); Sodium 140 mmol/L (137-145); Total Protein 7.6 g/dL (6.3-8.2); Triglycerides 233 mg/dL (35-150)
[2021-02-20 16:10] LABS: Hemoglobin A1C% w Est Avg Glu 8.1 % (4.0-6.0)
== END ==
PROVIDERS: PCP Nurse Practitioner; Referring Provider Nurse Practitioner; Visit Provider Nurse Practitioner
DX: E03.9 Hypothyroidism, unspecified (principal); E11.9 Type 2 diabetes mellitus without complications; E78.2 Mixed hyperlipidemia; I10 Essential (primary) hypertension; Z79.899 Other long term (current) drug therapy
CPT/HCPCS: 36415; 80053; 80061; 83036

== ENCOUNTER → 2021-05-29 09:27 | Outpatient (CLI) | payer OTHER, MEDICAID, SELFPAY ==
[2021-05-29 10:40] LABS: Hematocrit 43.6 % (41-53); Hemoglobin 15.4 g/dL (13.5-17.5); Mean Corpuscular HGB Conc 35.5 % (30-36); Mean Corpuscular Hemoglobin 30.2 PG (26-34); Mean Corpuscular Volume 85.2 fL (80-100); Platelet Count 236 X10^3/uL (150-400); Red Blood Cell Count 5.12 X10^6/uL (4.5-5.9); White Blood Cell Count 11.3 X10^3/uL (4.5-11.0)
[2021-05-29 10:44] LABS: Hemoglobin A1C% w Est Avg Glu 11.1 % (4.0-6.0)
[2021-05-29 10:56] LABS: Creatinine Urine Random 99.5 mg/dL
[2021-05-29 11:02] LABS: Alanine Aminotransferase 44 IU/L (<50); Albumin 4.3 g/dL (3.5-5.0); Albumin Globulin Ratio 1.5 (1.0-2.8); Alkaline Phosphatase 92 U/L (38-126); Aspartate Aminotransferase 23 IU/L (17-59); BUN Creatinine Ratio 15.1 (6-22); Bilirubin Total 0.6 mg/dL (0.2-1.3); Blood Urea Nitrogen 13 mg/dL (9-20); Calcium 9.5 mg/dL (8.4-10.2); Carbon Dioxide 29 mmol/L (22-32); Chloride 101 mmol/L (98-107); Cholesterol 113 mg/dL (140-199); Estimated Glomerular Filt Rate > 60.0 mL/min (>60); Globulin 2.9 g/dL (1.7-4.1); Glucose 328 mg/dL (70-100); HDL Cholesterol 31 mg/dL (40-60); HEMOLYSIS < 15 (0-50); LDL Cholesterol Calculated 34 mg/dL (<100); Sodium 136 mmol/L (137-145); Total Protein 7.2 g/dL (6.3-8.2); Triglycerides 241 mg/dL (35-150)
== END ==
PROVIDERS: PCP Nurse Practitioner; Referring Provider Nurse Practitioner; Visit Provider Nurse Practitioner
DX: E03.9 Hypothyroidism, unspecified (principal); E11.9 Type 2 diabetes mellitus without complications; E78.2 Mixed hyperlipidemia; F41.8 Other specified anxiety disorders; I10 Essential (primary) hypertension
CPT/HCPCS: 36415; 80053; 80061; 82043; 82570; 83036; 84443; 85027

== ENCOUNTER → 2021-06-05 12:54 | Outpatient (CLI) | payer OTHER, MEDICAID, SELFPAY ==
[2021-06-05 13:42] LABS: Appearance Urine UA SL CLOUDY; Bilirubin Urine UA NEGATIVE (NEGATIVE); Color Urine UA YELLOW; Glucose Urine UA 3+ g/dL (Negative); Ketones Urine UA TRACE (NEGATIVE); Leukocyte Esterase Urine UA NEGATIVE (NEGATIVE); Nitrite Urine UA NEGATIVE (Negative); Occult Blood Urine UA NEGATIVE (Negative); Protein Urine UA TRACE (Negative); Specific Gravity Urine UA 1.025 (1.000-1.035); Urobilinogen Urine UA 0.2 E.U./dL (0.2)
[2021-06-05 13:46] LABS: Bacteria Urine None Seen; Calcium Oxalate Crystals Urine Occasional; Culture Indicated Urine Cult Not Indicated; Hyaline Casts Urine 1-5/LPF; Mucus Urine 2+ (Negative); RBC Urine None Seen (0-5/HPF); Squamous Epithelial Cell Urine 0-1 /HPF (0-5/HPF); WBC Urine 1-5/HPF (0-5/HPF)
== END ==
PROVIDERS: PCP Nurse Practitioner; Referring Provider Nurse Practitioner; Visit Provider Nurse Practitioner
DX: D72.829 Elevated white blood cell count, unspecified (principal)
CPT/HCPCS: 81001

== ENCOUNTER → 2021-09-10 12:01 | Outpatient (CLI) | payer OTHER, MEDICAID, SELFPAY ==
[2021-09-10 13:58] LABS: Alanine Aminotransferase 27 IU/L (<50); Albumin 4.5 g/dL (3.5-5.0); Albumin Globulin Ratio 1.5 (1.0-2.8); Alkaline Phosphatase 80 U/L (38-126); Aspartate Aminotransferase 19 IU/L (17-59); BUN Creatinine Ratio 13.3 (6-22); Bilirubin Total 0.5 mg/dL (0.2-1.3); Blood Urea Nitrogen 13 mg/dL (9-20); Calcium 9.3 mg/dL (8.4-10.2); Carbon Dioxide 34 mmol/L (22-32); Chloride 98 mmol/L (98-107); Cholesterol 114 mg/dL (140-199); Estimated Glomerular Filt Rate > 60 mL/min (>60); Globulin 3.1 g/dL (1.7-4.1); Glucose 265 mg/dL (70-100); HDL Cholesterol 28 mg/dL (40-60); HEMOLYSIS < 15 (0-50); LDL Cholesterol Calculated 51 mg/dL (<100); Potassium 3.3 mmol/L (3.4-5.1); Sodium 138 mmol/L (137-145); Total Protein 7.6 g/dL (6.3-8.2); Triglycerides 173 mg/dL (35-150)
== END ==
PROVIDERS: PCP Nurse Practitioner; Referring Provider Nurse Practitioner; Visit Provider Nurse Practitioner
DX: E11.9 Type 2 diabetes mellitus without complications (principal); E78.2 Mixed hyperlipidemia; I10 Essential (primary) hypertension
CPT/HCPCS: 36415; 80053; 80061; 83036

== ENCOUNTER → 2021-12-25 10:23 | Outpatient (CLI) | payer OTHER, MEDICAID, SELFPAY ==
[2021-12-25 11:28] LABS: Hemoglobin A1C% w Est Avg Glu 7.8 % (4.0-6.0)
[2021-12-25 12:16] LABS: Alanine Aminotransferase 33 IU/L (<50); Albumin 4.8 g/dL (3.5-5.0); Albumin Globulin Ratio 1.5 (1.0-2.8); Alkaline Phosphatase 79 U/L (38-126); Aspartate Aminotransferase 26 IU/L (17-59); BUN Creatinine Ratio 11.9 (6-22); Bilirubin Total 0.7 mg/dL (0.2-1.3); Blood Urea Nitrogen 12 mg/dL (9-20); Calcium 9.8 mg/dL (8.4-10.2); Carbon Dioxide 32 mmol/L (22-32); Chloride 101 mmol/L (98-107); Estimated Glomerular Filt Rate > 60 mL/min (>60); Globulin 3.3 g/dL (1.7-4.1); Glucose 142 mg/dL (70-100); HEMOLYSIS < 15 (0-50); Potassium 3.7 mmol/L (3.4-5.1); Sodium 141 mmol/L (137-145); Total Protein 8.1 g/dL (6.3-8.2)
[2021-12-25 12:22] LABS: Creatinine Urine Random 117.8 mg/dL
[2021-12-25 12:26] LABS: Microalbumi Creatinin Ratio Ur 7.6 ug/mg CR (<30); Microalbumin Urine Random 0.9 mg/dL (0-1.6)
== END ==
PROVIDERS: PCP Nurse Practitioner; Referring Provider Nurse Practitioner; Visit Provider Nurse Practitioner
DX: E03.9 Hypothyroidism, unspecified (principal); E11.9 Type 2 diabetes mellitus without complications; E78.2 Mixed hyperlipidemia; I10 Essential (primary) hypertension; Z79.899 Other long term (current) drug therapy
CPT/HCPCS: 36415; 80053; 82043; 82570; 83036; 84443

== ENCOUNTER → 2022-03-25 10:01 | Outpatient (CLI) | payer OTHER, MEDICAID, SELFPAY ==
[2022-03-25 11:12] LABS: Add Manual Diff / Slide Review NO; Basophils Absolute Auto 100 /uL (0-100); Basophils Percent Auto 1.4 % (0-2); Eosinophils Absolute Auto 300 /uL (0-450); Eosinophils Percent Auto 3.7 % (2-4); Hemoglobin 16.5 g/dL (13.5-17.5); Lymphocytes Absolute Auto 2700 /uL (1100-4500); Lymphocytes Percent Auto 32.4 % (25-40); Mean Corpuscular HGB Conc 35.1 % (30-36); Mean Corpuscular Hemoglobin 30.1 PG (26-34); Mean Corpuscular Volume 85.8 fL (80-100); Monocytes Absolute Auto 500 /uL (0-900); Monocytes Percent Auto 6.7 % (3-14); Neutrophils Absolute Auto 4600 /uL (1500-7000); Neutrophils Percent Auto 55.8 % (50-75); Platelet Count 226 X10^3/uL (150-400); Red Blood Cell Count 5.48 X10^6/uL (4.5-5.9); Red Cell Distribution Width 14.1 % (11.6-14.8); White Blood Cell Count 8.2 X10^3/uL (4.5-11.0)
[2022-03-25 11:21] LABS: Hemoglobin A1C% w Est Avg Glu 7.2 % (4.0-6.0)
[2022-03-25 11:38] LABS: Alanine Aminotransferase 21 IU/L (<50); Albumin 4.1 g/dL (3.5-5.0); Albumin Globulin Ratio 1.3 (1.0-2.8); Alkaline Phosphatase 88 U/L (38-126); Aspartate Aminotransferase 18 IU/L (17-59); BUN Creatinine Ratio 16.3 (6-22); Bilirubin Total 0.4 mg/dL (0.2-1.3); Blood Urea Nitrogen 15 mg/dL (9-20); Calcium 8.7 mg/dL (8.4-10.2); Carbon Dioxide 27 mmol/L (22-32); Chloride 106 mmol/L (98-107); Cholesterol 182 mg/dL (140-199); Estimated Glomerular Filt Rate > 60 mL/min (>60); Globulin 3.2 g/dL (1.7-4.1); Glucose 146 mg/dL (70-100); HDL Cholesterol 32 mg/dL (40-60); HEMOLYSIS < 15 (0-50); LDL Cholesterol Calculated 94 mg/dL (<100); Potassium 3.8 mmol/L (3.4-5.1); Sodium 140 mmol/L (137-145); Total Protein 7.3 g/dL (6.3-8.2); Triglycerides 279 mg/dL (35-150)
[2022-03-25 11:52] LABS: Free T4, Direct Thyroxine 1.06 ng/dL (0.78-2.19)
[2022-03-25 12:06] LABS: Thyroid Stimulating Hormone 1.72 uIU/mL (0.47-4.68)
[2022-03-25 15:59] LABS: Creatinine Urine Random 89.7 mg/dL
[2022-03-25 16:01] LABS: Microalbumi Creatinin Ratio Ur 7.8 ug/mg CR (<30); Microalbumin Urine Random 0.7 mg/dL (0-1.6)
== END ==
PROVIDERS: PCP Nurse Practitioner; Referring Provider Nurse Practitioner; Visit Provider Nurse Practitioner
DX: Z00.00 Encounter for general adult medical examination without abnormal findings (principal); E03.9 Hypothyroidism, unspecified; E11.69 Type 2 diabetes mellitus with other specified complication; E11.9 Type 2 diabetes mellitus without complications; E78.5 Hyperlipidemia, unspecified; F41.8 Other specified anxiety disorders; G47.00 Insomnia, unspecified; I10 Essential (primary) hypertension
CPT/HCPCS: 36415; 80053; 80061; 82043; 82570; 83036; 84439; 84443; 84481; 85025

== ENCOUNTER → 2022-07-09 14:15 | Outpatient (CLI) | payer OTHER, MEDICAID, SELFPAY ==
[2022-07-09 15:50] LABS: Hemoglobin A1C% w Est Avg Glu 7.5 % (4.0-6.0)
[2022-07-09 16:05] LABS: Alanine Aminotransferase 24 IU/L (<50); Albumin 4.5 g/dL (3.5-5.0); Albumin Globulin Ratio 1.3 (1.0-2.8); Alkaline Phosphatase 92 U/L (38-126); Aspartate Aminotransferase 21 IU/L (17-59); BUN Creatinine Ratio 13.8 (6-22); Bilirubin Total 0.5 mg/dL (0.2-1.3); Blood Urea Nitrogen 13 mg/dL (9-20); Carbon Dioxide 27 mmol/L (22-32); Chloride 104 mmol/L (98-107); Cholesterol 145 mg/dL (140-199); Estimated Glomerular Filt Rate > 60 mL/min (>60); Globulin 3.5 g/dL (1.7-4.1); Glucose 99 mg/dL (70-100); HDL Cholesterol 37 mg/dL (40-60); HEMOLYSIS < 15 (0-50); LDL Cholesterol Calculated 69 mg/dL (<100); Potassium 3.5 mmol/L (3.4-5.1); Sodium 139 mmol/L (137-145); Triglycerides 193 mg/dL (35-150)
[2022-07-09 16:26] LABS: Free T3, Triiodothyronine Free 3.91 pg/mL (2.77-5.27); Free T4, Direct Thyroxine 1.45 ng/dL (0.78-2.19)
[2022-07-09 16:40] LABS: Thyroid Stimulating Hormone 0.598 uIU/mL (0.47-4.68)
[2022-07-10 16:00] LABS: Microalbumin Urine Random 0.6 mg/dL (0-1.6)
[2022-07-10 16:13] LABS: Creatinine Urine Random 76.5 mg/dL; Microalbumi Creatinin Ratio Ur 7.8 ug/mg CR (<30)
== END ==
PROVIDERS: PCP Nurse Practitioner; Referring Provider Nurse Practitioner; Visit Provider Nurse Practitioner
DX: E03.9 Hypothyroidism, unspecified (principal); E11.41 Type 2 diabetes mellitus with diabetic mononeuropathy; E11.69 Type 2 diabetes mellitus with other specified complication; E78.2 Mixed hyperlipidemia; E78.5 Hyperlipidemia, unspecified; F41.8 Other specified anxiety disorders; G47.00 Insomnia, unspecified; I10 Essential (primary) hypertension; Z79.4 Long term (current) use of insulin; Z79.899 Other long term (current) drug therapy
CPT/HCPCS: 36415; 80053; 80061; 82043; 82570; 83036; 84439; 84443; 84481

== ENCOUNTER → 2022-10-28 10:33 | Outpatient (CLI) | payer OTHER, MEDICAID, SELFPAY ==
[2022-10-28 12:26] LABS: Alanine Aminotransferase 27 IU/L (<50); Albumin Globulin Ratio 1.3 (1.0-2.8); Alkaline Phosphatase 80 U/L (38-126); Aspartate Aminotransferase 23 IU/L (17-59); BUN Creatinine Ratio 12.1 (6-22); Bilirubin Total 0.3 mg/dL (0.2-1.3); Blood Urea Nitrogen 11 mg/dL (9-20); Calcium 8.4 mg/dL (8.4-10.2); Carbon Dioxide 32 mmol/L (22-32); Chloride 100 mmol/L (98-107); Estimated Glomerular Filt Rate > 60 mL/min (>60); Globulin 3.1 g/dL (1.7-4.1); Glucose 128 mg/dL (70-100); HEMOLYSIS < 15 (0-50); Potassium 3.1 mmol/L (3.4-5.1); Sodium 139 mmol/L (137-145); Total Protein 7.1 g/dL (6.3-8.2)
[2022-10-28 13:28] LABS: Thyroid Stimulating Hormone 1.17 uIU/mL (0.47-4.68)
[2022-10-28 19:57] LABS: HIV 1 & 2 Ab/Ag 4th Gen Combo NEGATIVE (NEGATIVE); Hep C Virus Ab w/Reflex Quant NEGATIVE s/c (NEGATIVE)
[2022-10-29 07:14] LABS: Labcorp Hemoglobin (Hb) A1c 7.1 % (4.8-5.6)
== END ==
PROVIDERS: PCP Nurse Practitioner; Referring Provider Nurse Practitioner; Visit Provider Nurse Practitioner
DX: Z11.4 Encounter for screening for human immunodeficiency virus [HIV] (principal); Z11.59 Encounter for screening for other viral diseases; E03.9 Hypothyroidism, unspecified; E11.41 Type 2 diabetes mellitus with diabetic mononeuropathy; E11.69 Type 2 diabetes mellitus with other specified complication; E11.9 Type 2 diabetes mellitus without complications; E78.5 Hyperlipidemia, unspecified; I10 Essential (primary) hypertension; Z79.4 Long term (current) use of insulin
CPT/HCPCS: 36415; 80053; 83036; 84443; 86803; 87389

== ENCOUNTER → 2023-03-18 12:27 | Outpatient (CLI) | payer OTHER, MEDICAID, SELFPAY ==
[2023-03-18 14:16] LABS: Hemoglobin A1C% w Est Avg Glu 7.1 % (4.0-6.0)
[2023-03-18 14:28] LABS: Alanine Aminotransferase 23 IU/L (<50); Albumin 4.7 g/dL (3.5-5.0); Albumin Globulin Ratio 1.5 (1.0-2.8); Alkaline Phosphatase 81 U/L (38-126); Aspartate Aminotransferase 22 IU/L (17-59); Bilirubin Total 0.5 mg/dL (0.2-1.3); Blood Urea Nitrogen 15 mg/dL (9-20); Calcium 9.9 mg/dL (8.4-10.2); Carbon Dioxide 27 mmol/L (22-32); Chloride 101 mmol/L (98-107); Cholesterol 132 mg/dL (140-199); Estimated Glomerular Filt Rate > 60 mL/min (>60); Globulin 3.1 g/dL (1.7-4.1); Glucose 136 mg/dL (70-100); HDL Cholesterol 39 mg/dL (40-60); HEMOLYSIS < 15 (0-50); LDL Cholesterol Calculated 62 mg/dL (<100); Sodium 139 mmol/L (137-145); Total Protein 7.8 g/dL (6.3-8.2); Triglycerides 157 mg/dL (35-150)
[2023-03-18 16:21] LABS: Creatinine Urine Random 119.8 mg/dL
[2023-03-18 16:25] LABS: Microalbumi Creatinin Ratio Ur 8.3 ug/mg CR (<30)
== END ==
PROVIDERS: PCP Nurse Practitioner; Referring Provider Nurse Practitioner; Visit Provider Nurse Practitioner
DX: E11.41 Type 2 diabetes mellitus with diabetic mononeuropathy (principal); Z79.4 Long term (current) use of insulin; E11.69 Type 2 diabetes mellitus with other specified complication; E78.5 Hyperlipidemia, unspecified; F41.8 Other specified anxiety disorders; Z79.899 Other long term (current) drug therapy
CPT/HCPCS: 36415; 80053; 80061; 82043; 82570; 83036

== ENCOUNTER 2023-06-15 11:53 | Emergency (ER) | payer OTHER, MEDICAID, SELFPAY ==
[2023-06-15 12:23] VITALS: BP 134/78; PULSE 94; RESP 14; TEMP 36.5; O2SAT 94; BMI 31.2
--- NOTE | 2023-06-15 13:28 | ED.DENTAL ---
HPI - Dental/Oral <Delgado Perera PA-C - Last Filed: 06/15/23 13:52> General Chief complaint: Dental/Oral Stated complaint: L side of face swelling, poss infection Source: patient Mode of arrival: Ambulatory History of Present Illness HPI Narrative: This is a 47-year-old male presents emergency department due to left lower dental pain for the last day as well as some left cheek swelling. Denies any fevers, nausea, vomiting, difficulty breathing or swallowing, or any other concerning signs or symptoms. States it is similar to a dental infection she has had in the past. States he has very poor dentition. Related Data Home Medications Medication Instructions Recorded Confirmed omeprazole 20 mg capsule,delayed 20 mg PO DAILY 03/20/23 03/20/23 release Previous Rx's Medication Instructions Recorded pen needle, diabetic 31 gauge x #100 ea 08/29/2005/22 (Pen Needle) Blood Glucose Lancettes #300 ea 09/11/21 Blood Glucose Pen #1 ea 09/11/21 Blood Glucose Test Strips #300 ea 09/11/21 Blood Glucuse Meter #1 ea 09/11/21 blood sugar diagnostic (Blood #300 ea 12/10/21 Glucose Test strips) blood-glucose meter #1 ea 12/10/21 lancets 23 gauge #100 ea 12/10/21 nortriptyline 75 mg capsule 75 mg PO BEDTIME #30 caps 07/09/22 tadalafil (pulm. hypertension) 20 20 mg PO DAILY PRN sexual activity 07/09/22 mg tablet (pulmonary hypertension) #30 tabs canagliflozin 300 mg tablet 300 mg PO QAM #30 tabs 11/14/22 (Invokana) pen needle, diabetic 31 gauge x #300 ea 01/21/23 5/16 (BD Ultra-Fine Short Pen Needle) amlodipine 10 mg tablet See Rx Instructions .Route 03/20/23 .COMPLEX #90 tabs azelastine 0.05 % eye drops 1 drp ophthalmic (eye) BID PRN 03/20/23 Seasonal allergies #6 mL carvedilol phosphate 80 mg See Rx Instructions .Route 03/20/23 capsule,[id number] multiphase .COMPLEX #90 caps clobetasol 0.05 % topical ointment 1 applic topical BID 2 weeks #30 03/20/23 grams doxepin 10 mg/mL oral concentrate 3 mg (0.3 mL) PO DAILY PRN 03/20/23 insomnia #120 mL glipizide 10 mg tablet, extended 20 mg (2 x 10 mg) PO BID #360 tabs 03/20/23 release 24 hr hydrochlorothiazide 25 mg tablet 25 mg PO QAM #90 tabs 03/20/23 insulin glargine 100 unit/mL (3 25 unit (0.25 mL) SUBCUT QPM #15 mL 03/20/23 mL) subcutaneous pen (Lantus Solostar U-100 Insulin) levothyroxine 150 mcg tablet 150 mcg PO DAILY #90 tabs 03/20/23 liraglutide 0.6 mg/0.1 mL (18 mg/3 See Rx Instructions SUBCUT 03/20/23 mL) subcutaneous pen injector .COMPLEX #6 mL (Victoza 2-Huey) loratadine 10 mg tablet (Allergy 10 mg PO DAILY #30 tabs 03/20/23 Relief (loratadine)) omega-3 acid ethyl esters 1 gram See Rx Instructions .Route 03/20/23 capsule .COMPLEX #180 caps promethazine 12.5 mg tablet 25 mg (2 x 12.5 mg) PO Q6H PRN 03/20/23 nausea and vomiting #60 tabs rosuvastatin 40 mg tablet 40 mg PO DAILY #30 tabs 03/20/23 sumatriptan succinate 100 mg tablet See Rx Instructions PO .COMPLEX 03/20/23 #30 tabs lubiprostone 8 mcg capsule 8 mcg PO BID #180 caps 03/27/23 penicillin V potassium 250 mg 250 mg PO QID #40 tabs 06/15/23 tablet Allergies Allergy/AdvReac Type Severity Reaction Status Date / Time metoclopramide [From Reglan] Allergy Severe Irritable Verified 06/15/23 12:26 rock Allergy Mild hives Verified 06/15/23 12:26 lisinopril AdvReac Intermediate Cough Verified 06/15/23 12:26 metformin AdvReac Intermediate daily Verified 06/15/23 12:26 diarrhea glyburide AdvReac Mild diarrhea Verified 06/15/23 12:26 and stomach aches losartan AdvReac dizziness, Verified 06/15/23 12:26 queasiness, presyncope Review of Systems <Delgado Perera PA-C - Last Filed: 06/15/23 13:52> Review of Systems Narrative: GENERAL: Denies chills, fatigue, malaise, fever, sweats. HEENT: Left-sided dental pain Denies sinus pain, ear pain, sore throat, difficulty swallowing, dizziness. RESPIRATORY: Denies dyspnea, cough, wheezing, hemoptysis, sputum. CARDIOVASCULAR: Denies chest pain, palpitations, orthopnea, edema, GASTROINTESTINAL: Denies nausea, vomiting, abdominal pain, diarrhea, constipation, melena. : Denies dysuria, frequency, incontinence, hematuria, urinary retention. MUSCULOSKELETAL: denies weakness, joint pain, or bony pain SKIN: Denies rash, skin lesions, or other NEUROLOGIC: Denies weakness, headache, numbness, change in speech, confusion, seizures, incoordination. PSYCHIATRIC: No concerning psychosocial issues. 12 point review of systems is negative except for those stated above Patient History <Delgado Perera PA-C - Last Filed: 06/15/23 13:52> Medical History PTSD (post-traumatic stress disorder) Type 2 diabetes mellitus with diabetic mononeuropathy, with long-term current use of insulin Hyperlipidemia associated with type 2 diabetes mellitus Type 2 diabetes mellitus treated without insulin Pelvic somatic dysfunction Sacral region somatic dysfunction Cervical somatic dysfunction Cranial somatic dysfunction Chronic right-sided thoracic back pain Chronic neck pain Migraine headache Insomnia Depression with anxiety Upper extremity somatic dysfunction Thoracic region somatic dysfunction Segmental and somatic dysfunction of rib cage Rib pain on left side Abdominal pain Depression Nausea Arthritis Biliary colic Mid back pain on right side RUQ pain Diarrhea Bloating Depression with anxiety Other half-way (current) drug therapy Hyperlipidemia Dizziness Seasonal allergies Migraine headache without aura Hearing loss Dermatitis (~2011) Seasonal allergies Headache (~1984) Wrist pain (~2011) SHIRLEY (obstructive sleep apnea) (~2006) Encounter for smoking cessation counseling Hypothyroidism (~2010) Hypertension (~2006) Non-insulin dependent type 2 diabetes mellitus (~2013) Surgical History Hx of vasectomy Status post hernia repair Family History Mother Hypertension Gallstones Sister Diabetes mellitus Hypertension Social History marital status: household members: spouse and children occupational status: employed Smoking Status: Current every day smoker alcohol intake: current substance use type: marijuana Smoking Status: Current every day smoker tobacco type: cigarettes alcohol intake frequency: holidays/special occasions only Substance Use Type: marijuana Exam <Delgado Perera PA-C - Last Filed: 06/15/23 13:52> Narrative Exam Narrative: GENERAL: Well-developed patient, in mild distress. HEAD: Atraumatic. Normocephalic. EYES: Pupils equal round and reactive. Extraocular motions intact. No scleral icterus. No injection or drainage. ENT: Left cheek swelling. Very poor dentition. Some erythema to the lower gumline on the left side. No periapical or periodontal abscesses. Nose without bleeding, purulent drainage. Throat without erythema, tonsillar hypertrophy or exudate. Airway patent. NECK: Trachea midline. Non tender EXTREMITIES: No edema or joint tenderness. NEURO: AOx3. SKIN: No rash or erythema of visible areas Initial Vital Signs Initial Vital Signs: Vital Signs Temperature 97.7 F 06/15/23 12:23 Pulse Rate 94 H 06/15/23 12:23 Respiratory Rate 14 06/15/23 12:23 Blood Pressure 134/78 06/15/23 12:23 Pulse Oximetry 94 06/15/23 12:23 Oxygen Delivery Method Room Air 06/15/23 12:23 <Hardik Sweet DO - Last Filed: 06/15/23 16:00> Initial Vital Signs Initial Vital Signs: Vital Signs Temperature 97.7 F 06/15/23 12:23 Pulse Rate 94 H 06/15/23 12:23 Respiratory Rate 14 06/15/23 12:23 Blood Pressure 134/78 06/15/23 12:23 Pulse Oximetry 94 06/15/23 12:23 Oxygen Delivery Method Room Air 06/15/23 12:23 Course <Delgado Perera PA-C - Last Filed: 06/15/23 13:52> Vital Signs Vital signs: Vital Signs - 8 hr 06/15/23 12:23 Temperature 97.7 F Pulse Rate 94 H Respiratory Rate 14 Blood Pressure 134/78 Pulse Oximetry 94 Oxygen Delivery Method Room Air <Hardik Sweet DO - Last Filed: 06/15/23 16:00> Vital Signs Vital signs: Vital Signs - 8 hr 06/15/23 12:23 Temperature 97.7 F Pulse Rate 94 H Respiratory Rate 14 Blood Pressure 134/78 Pulse Oximetry 94 Oxygen Delivery Method Room Air MDM - Dental/Oral <Delgado Perera PA-C - Last Filed: 06/15/23 13:52> [facility] Narrative Medical decision making narrative: ED course: This is a 47-year-old male presents emergency department due to left lower dental pain as well as left cheek swelling onset last night. Suspect dental infection. We will prescribe oral penicillin. Patient will follow up with a dentist. No difficulty breathing or swallowing. No abscesses visualized that would benefit from incision and drainage. CC: Dental pain Complicating co-morbidities: Diabetes Data collected from: Previous notes Medical records reviewed: Patient was last seen here 4 years ago due to dental infection. History of diabetes. Penicillin was prescribed. Differential considered, but not limited to: Dental infection, periodontal abscess Exam documented above, pertinent findings include: Some tenderness with palpation to the gumline of the left lower teeth. No airway compromise. No abscesses noted. Lab Test results independently reviewed as above. Pertinent findings: None obtained Imaging studies independently reviewed: Not obtained Scores Used: None MIPS Elements: None Consultations: None Treatments: None Re-evaluations: None Discussion: Discussed plan with the patient was comfortable with the plan Diagnosis: Dental infection Disposition: see below, along with detailed discharge instructions that have been reviewed with patient as well as indications for ED re-evaluation and additional outpatient follow up Discharge Plan Departure Patient Disposition: Home Clinical Impression: Dental infection Activity Restrictions/Additional Instructions: Thank you for coming to the [facility] Emergency Department today. This seems that you may have a dental infection. Please take the oral antibiotics as prescribed. Please follow up with the dentist for long-term care. Please return to the emergency department if you develop any significant fevers, difficulty breathing swallowing, or any other concerning signs or symptoms. I sent the medications to [facility]. I hope you feel better soon. Please follow up with your primary care provider within a week if your symptoms continue. If you do not have a primary care provider please contact the [facility] Resource line at [phone]. They will ask some questions about your medical history and help you get set up with a provider in the community. Prescriptions: New penicillin V potassium 250 mg tablet 250 mg PO QID Qty: 40 0RF No Action (DME) pen needle, diabetic [Pen Needle] 31 gauge x 1/4 needle See Rx Instructions .ROUTE .MEDSUPPLY Qty: 100 3RF Rx Instructions: Use with liraglutide pen (DME) pen needle, diabetic [BD Ultra-Fine Short Pen Needle] 31 gauge x 5/16 needle See Rx Instructions .ROUTE .COMPLEX Qty: 300 3RF Dose Instruction: USE TO INJECT VICTOZA TWO TIMES DAILY Rx Instructions: USE TO INJECT VICTOZA TWO TIMES DAILY lubiprostone 8 mcg capsule 8 mcg PO BID Qty: 180 3RF Invokana 300 mg tablet 300 mg PO QAM Qty: 30 11RF Rx Instructions: Take 1 tab each morning for diabetes (DME) Blood Glucuse Meter See Rx Instructions .Route .MEDSUPPLY Qty: 1 0RF Rx Instructions: As directed (DME) Blood Glucose Test Strips See Rx Instructions .Route .MEDSUPPLY Qty: 300 3RF Rx Instructions: Check blood sugars daily and as needed (DME) Blood Glucose Pen See Rx Instructions .Route .MEDSUPPLY Qty: 1 0RF Rx Instructions: As directed (DME) Blood Glucose Lancettes See Rx Instructions .Route .MEDSUPPLY Qty: 300 3RF Rx Instructions: Check blood sugars daily and as needed (DME) Blood Glucose Test Strip See Rx Instructions .ROUTE .MEDSUPPLY Qty: 300 3RF Rx Instructions: Use to check blood glucose one to three times daily as directed (DME) blood-glucose meter Misc See Rx Instructions .ROUTE .MEDSUPPLY Qty: 1 0RF Rx Instructions: Use to check blood glucose once daily and as needed, BRAND PER INSURANCE (DME) lancets 23 gauge misc See Rx Instructions .ROUTE .MEDSUPPLY Qty: 100 3RF Rx Instructions: Use to check blood glucose daily and as needed, BRAND PER INSURANCE nortriptyline 75 mg capsule 75 mg PO BEDTIME Qty: 30 11RF Rx Instructions: Take 1 capsule (75mg) at bedtime daily tadalafil (pulm. hypertension) 20 mg tablet 20 mg PO DAILY PRN (Reason: sexual activity) Qty: 30 4RF Rx Instructions: administer 1/4-1 tab approximately 30min before sexual activity; do not use more than 1 dose per 24hrs omeprazole 20 mg capsule,delayed release(DR/EC) 20 mg PO DAILY amlodipine 10 mg tablet See Rx Instructions .ROUTE .COMPLEX Qty: 90 3RF Dose Instruction: TAKE ONE TABLET (10MG) BY MOUTH ONCE DAILY FOR HYPERTENSION Rx Instructions: TAKE ONE TABLET (10MG) BY MOUTH ONCE DAILY FOR HYPERTENSION azelastine 0.05 % drops 1 drp ophthalmic (eye) BID PRN (Reason: Seasonal allergies) Qty: 6 5RF Rx Instructions: Apply 1 drop each eye twice daily as needed for seasonal allergies carvedilol phosphate 80 mg capsule, ER multiphase 24 hr See Rx Instructions .ROUTE .COMPLEX Qty: 90 3RF Dose Instruction: TAKE ONE CAPSULE BY MOUTH ONCE DAILY FOR BLOOD PRESSURE - TAKE WITH FOOD Rx Instructions: TAKE ONE CAPSULE BY MOUTH ONCE DAILY FOR BLOOD PRESSURE - TAKE WITH FOOD Carvedilol ER 80mg cap #90, approved 04/10/22 through 04/10/23 #[id number] clobetasol 0.05 % ointment 1 applic topical BID 14 Days Qty: 30 2RF Rx Instructions: Apply twice daily to affected area of face for no longer than 2 weeks (14 days) doxepin 10 mg/mL concentrate 3 mg PO DAILY PRN (Reason: insomnia) Qty: 120 3RF Rx Instructions: Take 3mg (0.3mL) at bedtime daily glipizide 10 mg tablet extended release 24hr 20 mg PO BID Qty: 360 3RF Rx Instructions: Take 2 tabs twice per day for diabetes hydrochlorothiazide 25 mg tablet 25 mg PO QAM Qty: 90 3RF Rx Instructions: Take 1 tab each morning for blood pressure Lantus Solostar U-100 Insulin 100 unit/mL (3 mL) insulin pen 25 unit SUBCUT QPM Qty: 15 3RF Rx Instructions: Take 32 units at bedtime daily, ok to increase by 2u/night for fasting blood sugars >150 levothyroxine 150 mcg tablet 150 mcg PO DAILY Qty: 90 3RF Victoza 2-Huey 0.6 mg/0.1 mL (18 mg/3 mL) pen injector See Rx Instructions SUBCUT .COMPLEX Qty: 6 4RF Rx Instructions: inject 0.8mg subcutaneously twice daily loratadine [Allergy Relief (loratadine)] 10 mg tablet 10 mg PO DAILY Qty: 30 11RF Rx Instructions: Take 1 tab daily for allergy relief omega-3 acid ethyl esters 1 gram capsule See Rx Instructions .ROUTE .COMPLEX Qty: 180 3RF Dose Instruction: TAKE ONE CAPSULE BY MOUTH TWO TIMES DAILY FOR TRIGLYCERIDES Rx Instructions: TAKE ONE CAPSULE BY MOUTH TWO TIMES DAILY FOR TRIGLYCERIDES promethazine 12.5 mg tablet 25 mg PO Q6H PRN (Reason: nausea and vomiting) Qty: 60 2RF Rx Instructions: Take 2 tab by mouth or rectally for nausea/vomiting rosuvastatin 40 mg tablet 40 mg PO DAILY Qty: 30 12RF Rx Instructions: Take 1 tab at bedtime daily for your cholesterol sumatriptan succinate 100 mg tablet See Rx Instructions PO .COMPLEX Qty: 30 2RF Rx Instructions: take 1 tab at onset of headache; if no relief, may repeat 1 tab after at least 2 hrs; max = 2 tabs/24 hrs PO Referrals: Veena Miles ARNP [Primary Care Provider] - Stand Alone Forms: Patient Portal/API ED Sign-out <Hardik Sweet DO - Last Filed: 06/15/23 16:00> Cosign ED Attending Cosignature Attestation: Dr Sweet Co-Sign Statement: I was available for consultation during this patient's emergency department visit. This chart is signed by myself for administrative purposes only. I did not have direct contact with this patient during this visit. They were seen independently by the APC.
== END 2023-06-15 13:56 | disposition home or self-care (01) ==
PROVIDERS: Emergency Provider Physician Assistant Medical; PCP Nurse Practitioner
DX: K04.7 Periapical abscess without sinus (principal)
CPT/HCPCS: 99281; 99283

== ENCOUNTER → 2024-10-12 10:28 | Outpatient (CLI) | payer OTHER, SELFPAY ==
[2024-10-12 11:09] LABS: Hematocrit 48.7 % (41-53); Hemoglobin 17.3 g/dL (13.5-17.5); Mean Corpuscular HGB Conc 35.5 % (30-36); Mean Corpuscular Hemoglobin 31.5 PG (26-34); Mean Corpuscular Volume 88.9 fL (80-100); Platelet Count 246 X10^3/uL (150-400); Red Blood Cell Count 5.48 X10^6/uL (4.5-5.9); Red Cell Distribution Width 13.8 % (11.6-14.8); White Blood Cell Count 8.3 X10^3/uL (4.5-11.0)
[2024-10-12 11:16] LABS: Hemoglobin A1C% w Est Avg Glu 8.1 % (4.0-6.0)
[2024-10-12 11:33] LABS: Alanine Aminotransferase 68 IU/L (<50); Albumin 4.5 g/dL (3.5-5.0); Albumin Globulin Ratio 1.7 (1.0-2.8); Alkaline Phosphatase 89 U/L (38-126); Aspartate Aminotransferase 36 IU/L (17-59); BUN Creatinine Ratio 15.6 (6-22); Bilirubin Total 0.5 mg/dL (0.2-1.3); Blood Urea Nitrogen 14 mg/dL (9-20); Calcium 9.2 mg/dL (8.4-10.2); Carbon Dioxide 28 mmol/L (22-32); Chloride 103 mmol/L (98-107); Cholesterol 185 mg/dL (140-199); Estimated Glomerular Filt Rate > 60 mL/min (>60); Globulin 2.7 g/dL (1.7-4.1); Glucose 178 mg/dL (70-99); HDL Cholesterol 33 mg/dL (40-60); HEMOLYSIS < 15 (0-50); LDL Cholesterol Calculated 78 mg/dL (<100); Potassium 3.6 mmol/L (3.4-5.1); Sodium 140 mmol/L (137-145); Total Protein 7.2 g/dL (6.3-8.2); Triglycerides 370 mg/dL (35-150)
[2024-10-12 12:01] LABS: TSH w/ Reflex to FT4 1.56 uIU/mL (0.47-4.68)
== END ==
PROVIDERS: PCP Family Medicine; Referring Provider Family Medicine; Visit Provider Family Medicine
DX: E11.41 Type 2 diabetes mellitus with diabetic mononeuropathy (principal); Z79.4 Long term (current) use of insulin; E11.69 Type 2 diabetes mellitus with other specified complication; E03.9 Hypothyroidism, unspecified; E78.5 Hyperlipidemia, unspecified; I10 Essential (primary) hypertension
CPT/HCPCS: 36415; 80053; 80061; 83036; 84443; 85027